=== PATIENT | female | born 1940 | race Caucasian/White ===

== ENCOUNTER 2018-11-24 17:05 | Inpatient (IN) ==
[2018-11-24] MEDS ORDERED: 0.9 % Sodium Chloride 1,000 ML IVC ONE (17:09)
--- NOTE | 2018-11-24 17:21 | Emergency Department Note ---
Disposition Clinical Impression: Pneumonia Qualifiers: Pneumonia type: due to unspecified organism Laterality: unspecified laterality Lung location: unspecified part of lung Qualified Code(s): J18.9 - Pneumonia, unspecified organism Disposition: Admitted As Inpatient Condition: Good Time of Disposition: 22:32 General Adult HPI - General Chief complaint: ED Altered Mental Status Stated complaint: confused Time Seen by Provider: 11/24/18 17:06 Source: patient, family Mode of arrival: EMS Nursing Notes Reviewed: Yes Vital Signs Reviewed: Yes - History of Present Illness HPI Narrative: Patient presenting to the ED via EMS with altered mental status. Patient is accompanied by her daughter and her family care physician. Patient history is mainly given by the daughter and her physician. He states that she has had several admissions in the last several months for urosepsis. She became altered yesterday and was progressively worse today. 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 No fever. Did have some hypoxia. No history of DVT or PE. Patient denies any abdominal pain. Is having some back pain. Pain Scale: 0 - Related Data Allergies Allergy/AdvReac Type Severity Reaction Status Date / Time No Known Allergies Allergy Verified 11/24/18 17:49 Review of Systems: As reviewed in the HPI. All other systems reviewed are negative or normal. Past Medical History - Past Medical History Attestation: Yes The following information was validated with the patient. Source: patient Medical history: Reports: hypertension - Social History Smoking Status: Never smoker Drug use: Reports: none Physical Exam CONSTITUTIONAL: [ill but non-toxic appearing, alert and in no acute distress] EYES: [EOMI, clear conjunctiva, PERRLA] HENT: [Normocephalic, atraumatic, moist mucus membranes] NECK: [normal inspection, full ROM, trachea midline, no obvious swelling] PULMONARY: [normal lung sounds bilaterally, normal chest rise and fall, no re spiratory distress or stridor, no wheezes, no rales, no rhonchi CARDIOVASCULAR: [tachycardic, regular rhythm, normal heart sounds, + 2/6 systolic murmur, distal extremities are warm and well perfused] GASTROINSTESTINAL: [soft, non-tender, non-rigid, non-distended, no guarding, no rebound, normal bowel sounds] GENITOURINARY/RECTAL: [deferred] NEUROLOGIC: [Alert, oriented to person and place but not time, normal speech, moves all extremities] EXTREMITIES: [Normal inspection, full ROM, no tenderness, no pedal edema, normal capillary refill] MUSCULOSKELETAL: [no gross deformities, atraumatic] SKIN: [No cyanosis, no diaphoresis, normal color, warm, no rash] PSYCHIATRIC: [unable to assess 2/2 ams] - General General appearance: alert Course Course Narrative: Patient presenting with altered mental status. Has a history of urosepsis and likely having a repeat episode now. We will get labs, EKG, chest x-ray, CT head, UA and reevaluate. Urinalysis is normal. However, patient is a very large right upper lobe pneumonia and significant leukocytosis. Started on vancomycin and Zosyn and will admit., Lactic was normal and she is not hypotensive, so she does not need an IV fluid bolus. Vital Signs Temperature 99.6 F 11/24/18 17:10 Pulse Rate 110 11/24/18 17:10 Respiratory Rate 18 11/24/18 17:10 Blood Pressure 156/98 11/24/18 17:10 O2 Sat by Pulse Oximetry 88 11/24/18 17:10 Temperature 98.4 F 11/24/18 21:24 Pulse Rate 92 11/24/18 21:24 Respiratory Rate 16 11/24/18 21:24 Blood Pressure 147/67 11/24/18 21:24 O2 Sat by Pulse Oximetry 92 11/24/18 21:24 Oxygen Delivery Oxygen Delivery Nasal Cannula Medical Decision Making - Lab Data Result diagrams: 11/24/18 18:05 11/24/18 18:05 Lab Results 11/24/18 11/24/18 11/24/18 Range/Units 17:29 17:29 18:05 WBC 37.5 H* (4.3-11.1) K/mcL RBC 4.37 (3.82-4.97) M/mcL Hgb 12.6 (11.5-15.4) g/dL Hct 39.2 (35.3-44.9) % MCV 89.7 (83.0-100.0) fL MCH 28.8 (28.0-33.3) pg MCHC 32.1 (31.6-35.5) g/dL RDW 16.1 H (11.5-14.5) % Plt Count 204 (140-400) K/mcL MPV 11.5 (9.4-12.4) fL Immature Gran % 6.8 H (0-4) % Seg Neutrophils % 85.9 % Lymphocytes % 2.0 % Monocytes % 5.1 % Eosinophils % 0.0 % Basophils % 0.2 % Neutrophils # 32.2 H (1.6-8.9) K/mcL Lymphocytes # 0.8 (0.6-4.6) K/mcL Monocytes # 1.9 H (0.0-1.3) K/mcL Eosinophils # 0.0 (0.0-0.6) K/mcL Basophils # 0.1 (0.0-0.2) K/mcL Sodium (136-145) mEq/L Potassium (3.5-5.1) mEq/L Chloride (98-107) mEq/L Carbon Dioxide (23-29) mEq/L BUN (8-23) mg/dL Creatinine (0.60-1.20) mg/dL Est GFR ( Amer) (> 60) Est GFR (Non-Af Amer) (> 60) BUN/Creatinine Ratio (6-26) Glucose (70-105) mg/dL Calculated Osmolality (280-300) Lactic Acid (0.5-2.2) mmol/L Calcium (8.6-10.3) mg/dL Total Bilirubin (0.3-1.0) mg/dL Direct Bilirubin (0.0-0.2) mg/dL Indirect Bilirubin (0.0-1.2) mg/dL AST (13-39) Units/L ALT (7-52) Units/L Alkaline Phosphatase (34-104) Units/L Troponin I (< 0.04) ng/mL Serum Total Protein (6.4-8.9) g/dL Albumin (3.5-5.7) g/dL Globulin (2.4-3.5) g/dL Albumin/Globulin Ratio (1.1-2.2) TSH (0.340-5.600) mcIU/mL Urine Color Yellow (Yellow) Urine Clarity Clear (Clear) Urine pH 6.5 (5.0-8.0) pH Units Ur Specific [place] 1.010 (1.010-1.025) Urine Protein 30 H (Neg-Trace) mg/dL Urine Glucose (UA) Normal (Normal) mg/dL Urine Ketones Negative (Negative) mg/dL Urine Blood Moderate H (Negative) Urine Nitrite Negative (Negative) Urine Bilirubin Negative (Negative) Urine Urobilinogen Normal (Normal) mg/dL Ur Leukocyte Esterase Negative (Negative) Urine Microscopic RBC 30-50 H (0-3) per hpf Urine Microscopic WBC 5-15 H (0-3) per hpf Ur Squamous Epith Cells Many H (None-Few) per lpf Urine Bacteria None Seen (None-Few) per hpf Hyaline Casts None Seen (None-Few) per lpf Ur Culture Indicated? YES A (NO) Urine Opiates Screen Negative (Qplcmd=766) ng/mL Ur Barbiturates Screen Negative (Bknenv=198) ng/mL Ur Phencyclidine Scrn Negative (Cutoff=25) ng/mL Ur Amphetamines Screen Negative (Ovbdrp=5453) ng/mL U Benzodiazepines Scrn Negative (Hpnrmt=550) ng/mL Urine Cocaine Screen Negative (Cutoff= 300) ng/mL U Marijuana (THC) Screen Positive H (Cutoff = 50) ng/mL Ur Drug Screen Interp See Below Ethyl Alcohol (Less than 10) mg/dL 11/24/18 11/24/18 Range/Units 18:05 18:05 WBC (4.3-11.1) K/mcL RBC (3.82-4.97) M/mcL Hgb (11.5-15.4) g/dL Hct (35.3-44.9) % MCV (83.0-100.0) fL MCH (28.0-33.3) pg MCHC (31.6-35.5) g/dL RDW (11.5-14.5) % Plt Count (140-400) K/mcL MPV (9.4-12.4) fL Immature Gran % (0-4) % Seg Neutrophils % % Lymphocytes % % Monocytes % % Eosinophils % % Basophils % % Neutrophils # (1.6-8.9) K/mcL Lymphocytes # (0.6-4.6) K/mcL Monocytes # (0.0-1.3) K/mcL Eosinophils # (0.0-0.6) K/mcL Basophils # (0.0-0.2) K/mcL Sodium 135 L (136-145) mEq/L Potassium 3.6 (3.5-5.1) mEq/L Chloride 100 (98-107) mEq/L Carbon Dioxide 26 (23-29) mEq/L BUN 24 H (8-23) mg/dL Creatinine 0.76 (0.60-1.20) mg/dL Est GFR ( Amer) > 60 (> 60) Est GFR (Non-Af Amer) > 60 (> 60) BUN/Creatinine Ratio 32 H (6-26) Glucose 116 H (70-105) mg/dL Calculated Osmolality 285 (280-300) Lactic Acid 2.1 (0.5-2.2) mmol/L Calcium 9.5 (8.6-10.3) mg/dL Total Bilirubin 0.6 (0.3-1.0) mg/dL Direct Bilirubin 0.1 (0.0-0.2) mg/dL Indirect Bilirubin 0.5 (0.0-1.2) mg/dL AST 15 (13-39) Units/L ALT 11 (7-52) Units/L Alkaline Phosphatase 52 (34-104) Units/L Troponin I 0.15 H* (< 0.04) ng/mL Serum Total Protein 8.0 (6.4-8.9) g/dL Albumin 3.2 L (3.5-5.7) g/dL Globulin 4.8 H (2.4-3.5) g/dL Albumin/Globulin Ratio 0.7 L (1.1-2.2) TSH 0.106 L (0.340-5.600) mcIU/mL Urine Color (Yellow) Urine Clarity (Clear) Urine pH (5.0-8.0) pH Units Ur Specific [place] (1.010-1.025) Urine Protein (Neg-Trace) mg/dL Urine Glucose (UA) (Normal) mg/dL Urine Ketones (Negative) mg/dL Urine Blood (Negative) Urine Nitrite (Negative) Urine Bilirubin (Negative) Urine Urobilinogen (Normal) mg/dL Ur Leukocyte Esterase (Negative) Urine Microscopic RBC (0-3) per hpf Urine Microscopic WBC (0-3) per hpf Ur Squamous Epith Cells (None-Few) per lpf Urine Bacteria (None-Few) per hpf Hyaline Casts (None-Few) per lpf Ur Culture Indicated? (NO) Urine Opiates Screen (Exkmza=425) ng/mL Ur Barbiturates Screen (Jryzek=836) ng/mL Ur Phencyclidine Scrn (Cutoff=25) ng/mL Ur Amphetamines Screen (Fzilaq=5990) ng/mL U Benzodiazepines Scrn (Bbeqmv=458) ng/mL Urine Cocaine Screen (Cutoff= 300) ng/mL U Marijuana (THC) Screen (Cutoff = 50) ng/mL Ur Drug Screen Interp Ethyl Alcohol < 10 (Less than 10) mg/dL
[2018-11-24 17:38] LABS: Bilirubin,Urine Negative (Negative); Blood,Urine Moderate (Negative); Clarity,Urine Clear (Clear); Color,Urine Yellow (Yellow); Glucose,Urine (UA) Normal (Normal); Ketones,Urine Negative (Negative); Leukocyte Esterase,Urine Negative (Negative); Nitrite,Urine Negative (Negative); PH,Urine 6.5 pH Units (5.0-8.0); Protein,Urine 30 mg/dL (Neg-Trace); Urobilinogen,Urine Normal (Normal)
[2018-11-24 17:40] LABS: Bacteria,Urine None Seen per hpf (None-Few); Hyaline Casts,Urine None Seen per lpf (None-Few); RBC,Urine 30-50 per hpf (0-3); Squamous Epithelial Cell,Urine Many per lpf (None-Few)
[2018-11-24 18:30] LABS: Basophils % 0.2 %; Monocytes % 5.1 %; Red Blood Count 4.37 M/mcL (3.82-4.97)
[2018-11-24 18:32] LABS: Basophils # 0.1 K/mcL (0.0-0.2); Hematocrit 39.2 % (35.3-44.9); Hemoglobin 12.6 g/dL (11.5-15.4); Immature Granulocytes % 6.8 % (0-4); Lymphocytes # 0.8 K/mcL (0.6-4.6); Mean Corpuscular HGB Conc 32.1 g/dL (31.6-35.5); Mean Corpuscular Hemoglobin 28.8 pg (28.0-33.3); Mean Corpuscular Volume 89.7 fL (83.0-100.0); Mean Platelet Volume 11.5 fL (9.4-12.4); Monocytes # 1.9 K/mcL (0.0-1.3); Neutrophils # 32.2 K/mcL (1.6-8.9); Platelet Count 204 K/mcL (140-400); Red Cell Distribution Width 16.1 % (11.5-14.5); Segmented Neutrophils % 85.9 %
[2018-11-24 18:35] LABS: White Blood Count 37.5 K/mcL (4.3-11.1)
[2018-11-24 18:37] LABS: Amphetamine Screen,Urine Negative ng/mL (Cutoff=1000); Barbiturate Screen,Urine Negative ng/mL (Cutoff=200); Benzodiazepines Screen,Urine Negative ng/mL (Cutoff=200); Cannabinoid Screen,Urine Positive ng/mL (Cutoff = 50); Cocaine Screen,Urine Negative ng/mL (Cutoff= 300); Phencyclidine Screen,Urine Negative ng/mL (Cutoff=25)
[2018-11-24 18:56] LABS: Alanine Aminotransferase 11 Units/L (7-52); Albumin 3.2 g/dL (3.5-5.7); Albumin/Globulin Ratio 0.7 (1.1-2.2); Alkaline Phosphatase 52 Units/L (34-104); Aspartate Amino Transferase 15 Units/L (13-39); BUN/Creatinine Ratio 32 (6-26); Bilirubin,Direct 0.1 mg/dL (0.0-0.2); Bilirubin,Indirect 0.5 mg/dL (0.0-1.2); Bilirubin,Total 0.6 mg/dL (0.3-1.0); Blood Urea Nitrogen 24 mg/dL (8-23); Calcium 9.5 mg/dL (8.6-10.3); Carbon Dioxide 26 mEq/L (23-29); Chloride 100 mEq/L (98-107); Ethanol < 10 mg/dL (Less than 10); Globulin 4.8 g/dL (2.4-3.5); Glucose 116 mg/dL (70-105); Osmolality,Calculated 285 (280-300); Potassium 3.6 mEq/L (3.5-5.1); Sodium 135 mEq/L (136-145); Troponin I 0.15 ng/mL (< 0.04); eGFR For African Americans > 60 (> 60); eGFR For Non-African Americans > 60 (> 60)
[2018-11-24] MEDS ORDERED: Piperacillin/Tazobactam 3.375 GM in Water for inj. (sterile) 20 ML IVP ONE (18:57)
[2018-11-24] MEDS ORDERED: Vancomycin (wt based) 1,000 MG VIAL IV STA (18:57)
[2018-11-24] MEDS ORDERED: Isovue-370 500 ML BOTTLE IVP ONE (19:04)
[2018-11-24 19:06] LABS: Thyroid Stimulating Hormone 0.106 mcIU/mL (0.340-5.600)
[2018-11-24 19:20] LABS: Opiate Screen,Urine Negative ng/mL (Cutoff=300)
--- NOTE | 2018-11-24 19:27 | Emergency Department Note ---
Disposition Clinical Impression: Pneumonia Qualifiers: Pneumonia type: due to unspecified organism Laterality: unspecified laterality Lung location: unspecified part of lung Qualified Code(s): J18.9 - Pneumonia, unspecified organism Disposition: Admitted As Inpatient Condition: Good Forms: ED Satisfaction Letter Time of Disposition: 19:27 General Adult HPI - General Chief complaint: ED Altered Mental Status Stated complaint: confused Time Seen by Provider: 11/24/18 17:06 Source: patient, family Mode of arrival: EMS - History of Present Illness Pain Scale: 0 - Related Data Allergies Allergy/AdvReac Type Severity Reaction Status Date / Time No Known Allergies Allergy Verified 11/24/18 17:49 Past Medical History - Past Medical History Medical history: Reports: hypertension - Social History Smoking Status: Never smoker Drug use: Reports: none Physical Exam - General General appearance: alert Course Vital Signs Temperature 99.6 F 11/24/18 17:10 Pulse Rate 110 11/24/18 17:10 Respiratory Rate 18 11/24/18 17:10 Blood Pressure 156/98 11/24/18 17:10 O2 Sat by Pulse Oximetry 88 11/24/18 17:10 Temperature 99.6 F 11/24/18 17:10 Pulse Rate 99 11/24/18 17:12 Respiratory Rate 18 11/24/18 17:12 Blood Pressure 136/69 11/24/18 17:12 O2 Sat by Pulse Oximetry 95 11/24/18 17:12 Oxygen Delivery Oxygen Delivery Nasal Cannula Medical Decision Making - Lab Data Result diagrams: 11/24/18 18:05 11/24/18 18:05 Lab Results 11/24/18 11/24/18 11/24/18 Range/Units 17:29 17:29 18:05 WBC 37.5 H* (4.3-11.1) K/mcL RBC 4.37 (3.82-4.97) M/mcL Hgb 12.6 (11.5-15.4) g/dL Hct 39.2 (35.3-44.9) % MCV 89.7 (83.0-100.0) fL MCH 28.8 (28.0-33.3) pg MCHC 32.1 (31.6-35.5) g/dL RDW 16.1 H (11.5-14.5) % Plt Count 204 (140-400) K/mcL MPV 11.5 (9.4-12.4) fL Immature Gran % 6.8 H (0-4) % Seg Neutrophils % 85.9 % Lymphocytes % 2.0 % Monocytes % 5.1 % Eosinophils % 0.0 % Basophils % 0.2 % Neutrophils # 32.2 H (1.6-8.9) K/mcL Lymphocytes # 0.8 (0.6-4.6) K/mcL Monocytes # 1.9 H (0.0-1.3) K/mcL Eosinophils # 0.0 (0.0-0.6) K/mcL Basophils # 0.1 (0.0-0.2) K/mcL Sodium (136-145) mEq/L Potassium (3.5-5.1) mEq/L Chloride (98-107) mEq/L Carbon Dioxide (23-29) mEq/L BUN (8-23) mg/dL Creatinine (0.60-1.20) mg/dL Est GFR ( Amer) (> 60) Est GFR (Non-Af Amer) (> 60) BUN/Creatinine Ratio (6-26) Glucose (70-105) mg/dL Calculated Osmolality (280-300) Lactic Acid (0.5-2.2) mmol/L Calcium (8.6-10.3) mg/dL Total Bilirubin (0.3-1.0) mg/dL Direct Bilirubin (0.0-0.2) mg/dL Indirect Bilirubin (0.0-1.2) mg/dL AST (13-39) Units/L ALT (7-52) Units/L Alkaline Phosphatase (34-104) Units/L Troponin I (< 0.04) ng/mL Serum Total Protein (6.4-8.9) g/dL Albumin (3.5-5.7) g/dL Globulin (2.4-3.5) g/dL Albumin/Globulin Ratio (1.1-2.2) TSH (0.340-5.600) mcIU/mL Urine Color Yellow (Yellow) Urine Clarity Clear (Clear) Urine pH 6.5 (5.0-8.0) pH Units Ur Specific [place] 1.010 (1.010-1.025) Urine Protein 30 H (Neg-Trace) mg/dL Urine Glucose (UA) Normal (Normal) mg/dL Urine Ketones Negative (Negative) mg/dL Urine Blood Moderate H (Negative) Urine Nitrite Negative (Negative) Urine Bilirubin Negative (Negative) Urine Urobilinogen Normal (Normal) mg/dL Ur Leukocyte Esterase Negative (Negative) Urine Microscopic RBC 30-50 H (0-3) per hpf Urine Microscopic WBC 5-15 H (0-3) per hpf Ur Squamous Epith Cells Many H (None-Few) per lpf Urine Bacteria None Seen (None-Few) per hpf Hyaline Casts None Seen (None-Few) per lpf Ur Culture Indicated? YES A (NO) Urine Opiates Screen Negative (Sdjfuz=196) ng/mL Ur Barbiturates Screen Negative (Irspbp=832) ng/mL Ur Phencyclidine Scrn Negative (Cutoff=25) ng/mL Ur Amphetamines Screen Negative (Vqsqaz=8630) ng/mL U Benzodiazepines Scrn Negative (Jnycwa=083) ng/mL Urine Cocaine Screen Negative (Cutoff= 300) ng/mL U Marijuana (THC) Screen Positive H (Cutoff = 50) ng/mL Ur Drug Screen Interp See Below Ethyl Alcohol (Less than 10) mg/dL 11/24/18 11/24/18 Range/Units 18:05 18:05 WBC (4.3-11.1) K/mcL RBC (3.82-4.97) M/mcL Hgb (11.5-15.4) g/dL Hct (35.3-44.9) % MCV (83.0-100.0) fL MCH (28.0-33.3) pg MCHC (31.6-35.5) g/dL RDW (11.5-14.5) % Plt Count (140-400) K/mcL MPV (9.4-12.4) fL Immature Gran % (0-4) % Seg Neutrophils % % Lymphocytes % % Monocytes % % Eosinophils % % Basophils % % Neutrophils # (1.6-8.9) K/mcL Lymphocytes # (0.6-4.6) K/mcL Monocytes # (0.0-1.3) K/mcL Eosinophils # (0.0-0.6) K/mcL Basophils # (0.0-0.2) K/mcL Sodium 135 L (136-145) mEq/L Potassium 3.6 (3.5-5.1) mEq/L Chloride 100 (98-107) mEq/L Carbon Dioxide 26 (23-29) mEq/L BUN 24 H (8-23) mg/dL Creatinine 0.76 (0.60-1.20) mg/dL Est GFR ( Amer) > 60 (> 60) Est GFR (Non-Af Amer) > 60 (> 60) BUN/Creatinine Ratio 32 H (6-26) Glucose 116 H (70-105) mg/dL Calculated Osmolality 285 (280-300) Lactic Acid 2.1 (0.5-2.2) mmol/L Calcium 9.5 (8.6-10.3) mg/dL Total Bilirubin 0.6 (0.3-1.0) mg/dL Direct Bilirubin 0.1 (0.0-0.2) mg/dL Indirect Bilirubin 0.5 (0.0-1.2) mg/dL AST 15 (13-39) Units/L ALT 11 (7-52) Units/L Alkaline Phosphatase 52 (34-104) Units/L Troponin I 0.15 H* (< 0.04) ng/mL Serum Total Protein 8.0 (6.4-8.9) g/dL Albumin 3.2 L (3.5-5.7) g/dL Globulin 4.8 H (2.4-3.5) g/dL Albumin/Globulin Ratio 0.7 L (1.1-2.2) TSH 0.106 L (0.340-5.600) mcIU/mL Urine Color (Yellow) Urine Clarity (Clear) Urine pH (5.0-8.0) pH Units Ur Specific [place] (1.010-1.025) Urine Protein (Neg-Trace) mg/dL Urine Glucose (UA) (Normal) mg/dL Urine Ketones (Negative) mg/dL Urine Blood (Negative) Urine Nitrite (Negative) Urine Bilirubin (Negative) Urine Urobilinogen (Normal) mg/dL Ur Leukocyte Esterase (Negative) Urine Microscopic RBC (0-3) per hpf Urine Microscopic WBC (0-3) per hpf Ur Squamous Epith Cells (None-Few) per lpf Urine Bacteria (None-Few) per hpf Hyaline Casts (None-Few) per lpf Ur Culture Indicated? (NO) Urine Opiates Screen (Hhkrfx=676) ng/mL Ur Barbiturates Screen (Mmehkt=154) ng/mL Ur Phencyclidine Scrn (Cutoff=25) ng/mL Ur Amphetamines Screen (Lmodzm=7676) ng/mL U Benzodiazepines Scrn (Gqeuhn=263) ng/mL Urine Cocaine Screen (Cutoff= 300) ng/mL U Marijuana (THC) Screen (Cutoff = 50) ng/mL Ur Drug Screen Interp Ethyl Alcohol < 10 (Less than 10) mg/dL Attestation Statement - Attestation Attestation: I examined this patient and my medical decision-making was reviewed with the Resident Physician. I agree with the documented findings, disposition and treatment plan as described except to the extent set forth below. 78 year old jose antonio presents to the eD with complaints of altered mental status and confusion. It appears that she has pneumonia on CXR and an elevated WBC. Will admit to medicine with IV ABX.
[2018-11-24] MEDS ORDERED: Naloxone 0.4 MG/ML INJ IVP PRN (20:35)
[2018-11-24] MEDS ORDERED: Vancomycin (wt based) 1,000 MG VIAL IVPB SCH (21:00)
--- NOTE | 2018-11-24 21:08 | Internal Med History&Physical ---
<Archana Minor E - Last Filed: 11/25/18 05:42> Date of Encounter: 11/25/18 Internal Medicine - H&P: HPI History of present illness: Ms. Win is a 78 year old female Internal Medicine - H&P: Meds Cyanocobalamin (Vitamin B-12) [Vitamin B12] 11/25/18 [History] Fluconazole [Diflucan] 200 mg PO DAILY 11/25/18 [History] Lactobacillus Combination No.8 [Adult Probiotic] 11/25/18 [History] Levothyroxine [Synthroid] [place] [address]/25/18 [History] Linaclotide [Linzess] 72 mcg PO 11/25/18 [History] Lisinopril [Zestril] 10 mg PO DAILY 11/25/18 [History] Lubiprostone [Amitiza] 24 mcg PO 11/25/18 [History] Magnesium Hydroxide [Milk of Magnesia] 400 mg PO 11/25/18 [History] Methadone Oral Concentrate [Methadone] 5 mg PO TID 11/25/18 [History] Mirabegron [Myrbetriq] 50 mg PO 11/25/18 [History] Multivitamin [Daily Multiple Vitamin] 1 each PO 11/25/18 [History] Naloxegol Oxalate [Movantik] 25 mg PO 11/25/18 [History] Pantoprazole Sodium [Protonix] 40 mg PO 11/25/18 [History] Sennosides [Senokot] 8.6 mg PO 11/25/18 [History] Zolpidem [Ambien] 10 mg PO HS 11/25/18 [History] Allergy/AdvReac Type Severity Reaction Status Date / Time acetaminophen [From [place]] Allergy Hives Verified 11/25/18 03:08 clarithromycin [From Biaxin] Allergy See Verified 11/25/18 03:08 Comments codeine Allergy Hives Verified 11/25/18 03:08 hydrocodone [From [place]] Allergy Hives Verified 11/25/18 03:08 morphine Allergy Hallucinati Verified 11/25/18 03:08 ng sulfamethoxazole AdvReac Itching Verified 11/25/18 02:59 [From Septra] trimethoprim [From Septra] AdvReac Itching Verified 11/25/18 02:59 All Systems PM: A 10-system review of systems was performed and is negative for pertinent findings except as documented above in the HPI. - Constitutional Vitals: Temp Pulse Resp BP Pulse Ox 98.6 F 101 16 172/93 91 11/25/18 05:27 11/25/18 05:27 11/25/18 05:27 11/25/18 05:27 11/25/18 05:27 Internal Med - H&P Results - Labs CBC & Chem 7: 11/25/18 00:32 11/25/18 00:32 Labs: Short CBC 11/24/18 11/25/18 Range/Units 18:05 00:32 WBC 37.5 H* 34.6 H* (4.3-11.1) K/mcL Hgb 12.6 12.1 (11.5-15.4) g/dL Hct 39.2 37.5 (35.3-44.9) % Plt Count 204 188 (140-400) K/mcL Neutrophils # 32.2 H 29.0 H (1.6-8.9) K/mcL BMP 11/24/18 11/25/18 18:05 00:32 Sodium 135 L 135 L Potassium 3.6 3.7 Chloride 100 101 Carbon Dioxide 26 24 BUN 24 H 24 H Creatinine 0.76 0.82 Glucose 116 H 121 H Calcium 9.5 8.9 Cardiac Enzymes 11/24/18 11/25/18 Range/Units 18:05 00:32 Troponin I 0.15 H* 0.12 H* (< 0.04) ng/mL Liver Function 11/24/18 11/25/18 Range/Units 18:05 00:32 Total Bilirubin 0.6 0.7 (0.3-1.0) mg/dL Direct Bilirubin 0.1 (0.0-0.2) mg/dL AST 15 17 (13-39) Units/L ALT 11 12 (7-52) Units/L Alkaline Phosphatase 52 46 (34-104) Units/L Albumin 3.2 L 2.9 L (3.5-5.7) g/dL Urine 11/24/18 Range/Units 17:29 Urine Color Yellow (Yellow) Urine Clarity Clear (Clear) Urine pH 6.5 (5.0-8.0) pH Units Ur Specific [place] 1.010 (1.010-1.025) Urine Protein 30 H (Neg-Trace) mg/dL Urine Glucose (UA) Normal (Normal) mg/dL - Impressions ITS Impressions Chest X-Ray 11/24/18 17:09 IMPRESSION: Airspace consolidation right upper lobe possibly representing pneumonia. Follow-up is recommended to ensure resolution. D/ / Luis Manuel Dwyer MD / Luis Manuel Dwyer MD Interpreting Provider: Luis Manuel Dwyer MD Head CT 11/24/18 17:10 IMPRESSION: No acute intracranial abnormality. D/ / Luis Manuel Dwyer MD / Luis Manuel Dwyer MD Interpreting Provider: Luis Manuel Dwyer MD - Time Spent With Patient Total time spent is greater than 50% in coordination of care (as documented) at patient's floor/unit and/or counseling patient: <Saniya Edmondson - Last Filed: 11/25/18 18:54> Date of Encounter: 11/24/18 Time of Encounter: 20:44 Internal Medicine - H&P: HPI Chief complaint: AMS History of present illness: Ms. Win is a 78 year old female with a past medical history of hypertension, sarcoidosis and history of chronic low back pain with multiple surgeries resulting in opioid addiction and currently on a methadone taper and medical marijuana who presented to the ED with family due to concern for altered mental status. Per daughter at bedside patient was in her usual state of health up until yesterday. She reports that she went to bed last night and apparently in the middle of night had gotten up to use the bathroom; her bed has 3 steps and patient had apparently fallen asleep with her leg still resting on the second step. Patient apparently has had several admissions in the last few months for various infections including urosepsis. Patient currently lives in [place] and flu in the visit family a week ago. No history of DVT or PE. Patient denies any lower extremity edema. Patient does endorse some nonproductive cough which began last night. She reports that daughter recently recovered from what she reports as flulike symptoms. No reports of fever or chills, nausea, shortness of breath, chest pain, abdominal pain, vomiting or diarrhea. Patient is a nonsmoker; no significant alcohol use. She is normally very active and independent of all ADLs. Only history of breast cancer. On my assessment, patient appeared diaphoretic and was somewhat lethargic but alert and oriented 3. She was able to provide a history but would occasionally fall back to sleep. On arrival patient was afebrile, hemodynamically stable. She was noted to be mildly tachycardic with a heart rate of 110. Initial pulse ox showed 88% on room air. Patient reportedly was 85% on room air at home prior to arrival. Laboratory workup notable for a significant leukocytosis of 37.5 and a elevated troponin of 0.15. Review of EKG shows sinus tachycardia with nonspecific T-wave and ST changes. Chest x-ray was obtained which showed findings concerning for a right upper lobe pneumonia. CT scan of the head was negative. Her urine drug screen was positive for marijuana. Patient was given 1 L fluid bolus in the ED and started on broad-spectrum antibiotic coverage for possible healthcare associated pneumonia. Past Med Surg Social Fam HX - Past Medical History Medical history: hypertension Additional medical history: sarcoidosis - Social History Smoking Status: Never smoker Drug use: none All Systems PM: A 10-system review of systems was performed and is negative for pertinent findings except as documented above in the HPI. - Constitutional Vitals: Temp Pulse Resp BP Pulse Ox 99.6 F 99 18 136/69 95 11/24/18 17:10 11/24/18 17:12 11/24/18 17:12 11/24/18 17:12 11/24/18 17:12 Exam: General: Alert and oriented 3 lying in bed in no acute distress patient does appear diaphoretic Skin:Normal color, no rash, no lesions. HEENT:EOM, pupils equal, round and reactive. Cardiovascular:Normal S1 & S2, no rubs, murmurs or gallops. No JVD. Pulse regular. Lungs: Rales and is willing wheeze in the right upper posterior thorax Abdomen:Soft, non-tender, no rigidity. Extremities:No deformity, no edema or tenderness, no joint swelling or clubbing. Neurological:Normal cognition though somewhat somnolent. No focal deficits appreciated Pulses:Carotid and radial pulses normal +2. Rest of the physical exam is non contributory Internal Med - H&P Results - Labs CBC & Chem 7: 11/25/18 16:04 11/25/18 00:32 Labs: Short CBC 11/24/18 Range/Units 18:05 WBC 37.5 H* (4.3-11.1) K/mcL Hgb 12.6 (11.5-15.4) g/dL Hct 39.2 (35.3-44.9) % Plt Count 204 (140-400) K/mcL Neutrophils # 32.2 H (1.6-8.9) K/mcL BMP 11/24/18 18:05 Sodium 135 L Potassium 3.6 Chloride 100 Carbon Dioxide 26 BUN 24 H Creatinine 0.76 Glucose 116 H Calcium 9.5 Cardiac Enzymes 11/24/18 Range/Units 18:05 Troponin I 0.15 H* (< 0.04) ng/mL Liver Function 11/24/18 Range/Units 18:05 Total Bilirubin 0.6 (0.3-1.0) mg/dL Direct Bilirubin 0.1 (0.0-0.2) mg/dL AST 15 (13-39) Units/L ALT 11 (7-52) Units/L Alkaline Phosphatase 52 (34-104) Units/L Albumin 3.2 L (3.5-5.7) g/dL Urine 11/24/18 Range/Units 17:29 Urine Color Yellow (Yellow) Urine Clarity Clear (Clear) Urine pH 6.5 (5.0-8.0) pH Units Ur Specific [place] 1.010 (1.010-1.025) Urine Protein 30 H (Neg-Trace) mg/dL Urine Glucose (UA) Normal (Normal) mg/dL - Impressions ITS Impressions Chest X-Ray 11/24/18 17:09 IMPRESSION: Airspace consolidation right upper lobe possibly representing pneumonia. Follow-up is recommended to ensure resolution. D/ / Luis Manuel Dwyer MD / Luis Manuel Dwyer MD Interpreting Provider: Luis Manuel Dwyer MD Head CT 11/24/18 17:10 IMPRESSION: No acute intracranial abnormality. D/ / Luis Manuel Dwyer MD / Luis Manuel Dwyer MD Interpreting Provider: Luis Manuel Dwyer MD - Assessment and Plan (1) Acute encephalopathy Current Visit: Yes Status: Acute Assessment and plan: Patient presented with acute encephalopathy characterized by mild confusion and increased lethargy. Suspect secondary to sepsis with right upper lobe pneumonia with acute hypoxia. CT scan of the head was otherwise unremarkable. No focal deficits. Patient alert oriented 3 though remains diaphoretic and somewhat somnolent. We will continue treatment for pneumonia and monitor. (2) Sepsis Current Visit: Yes Status: Acute Assessment and plan: Patient presents with 2 of 4 SIRS criteria with tachycardia and a significant leukocytosis with left shift with evidence of a right upper lobe pneumonia on chest x-ray. Currently hemodynamically stable. Heart rate has come down after 1 L fluid bolus. -Jay broad-spectrum antibiotics coverage -Continue fluids -Follow up blood cultures and urine antigens Qualifiers: Sepsis type: sepsis due to unspecified organism Qualified Code(s): A41.9 - Sepsis, unspecified organism (3) Hx of opioid abuse Current Visit: Yes Status: Acute Assessment and plan: Currently on methadone and marijuana tincture. Continue current regimen. (4) Pneumonia Current Visit: Yes Status: Acute Assessment and plan: Healthcare associated pneumonia setting of recent hospitalizations for infectious etiologies. We will continue patient on vancomycin, Zosyn and azithromycin. Blood cultures and urine antigens ordered. We will obtain sputum culture if possible. Qualifiers: Pneumonia type: due to unspecified organism Laterality: unspecified laterality Lung location: unspecified part of lung Qualified Code(s): J18.9 - Pneumonia, unspecified organism (5) DVT prophylaxis Current Visit: Yes Status: Acute Assessment and plan: Subcutaneous heparin (6) Hypoxia Current Visit: Yes Status: Acute Assessment and plan: Patient reported to have a O2 saturation of 85% on room air at home prior to arrival. Upon assessment here in the ED, her O2 saturation was found to be 88. Currently saturating in the mid 90s on 2 L. Suspect likely secondary to pneumonia. -Continue O2 support and monitor -Continue treatment of underlying pneumonia - Time Spent With Patient Total time spent is greater than 50% in coordination of care (as documented) at patient's floor/unit and/or counseling patient:
[2018-11-24] MEDS: Azithromycin 500 MG in D5% in Water 250 ML IVPB SCH (21:52)
[2018-11-24] MEDS: *HR* Heparin 5,000 UNIT/ML VIAL SQ SCH (21:53)
[2018-11-24] MEDS: 0.9 % Sodium Chloride 1,000 ML IVC SCH (21:56)
[2018-11-25 00:47] LABS: Basophils % 0.3 %
[2018-11-25 00:49] LABS: Basophils # 0.1 K/mcL (0.0-0.2); Hematocrit 37.5 % (35.3-44.9); Hemoglobin 12.1 g/dL (11.5-15.4); Immature Granulocytes % 9.7 % (0-4); Lymphocytes # 1.2 K/mcL (0.6-4.6); Lymphocytes % 3.4 %; Mean Corpuscular HGB Conc 32.3 g/dL (31.6-35.5); Mean Corpuscular Hemoglobin 29.1 pg (28.0-33.3); Mean Corpuscular Volume 90.1 fL (83.0-100.0); Mean Platelet Volume 12.1 fL (9.4-12.4); Monocytes % 2.8 %; Platelet Count 188 K/mcL (140-400); Red Blood Count 4.16 M/mcL (3.82-4.97); Red Cell Distribution Width 16.2 % (11.5-14.5); Segmented Neutrophils % 83.8 %
[2018-11-25 00:51] LABS: White Blood Count 34.6 K/mcL (4.3-11.1)
[2018-11-25 01:07] LABS: Alanine Aminotransferase 12 Units/L (7-52); Albumin 2.9 g/dL (3.5-5.7); Albumin/Globulin Ratio 0.7 (1.1-2.2); Alkaline Phosphatase 46 Units/L (34-104); Aspartate Amino Transferase 17 Units/L (13-39); BUN/Creatinine Ratio 29 (6-26); Bilirubin,Total 0.7 mg/dL (0.3-1.0); Blood Urea Nitrogen 24 mg/dL (8-23); Calcium 8.9 mg/dL (8.6-10.3); Carbon Dioxide 24 mEq/L (23-29); Chloride 101 mEq/L (98-107); Globulin 4.3 g/dL (2.4-3.5); Glucose 121 mg/dL (70-105); Osmolality,Calculated 285 (280-300); Potassium 3.7 mEq/L (3.5-5.1); Sodium 135 mEq/L (136-145); Total Protein 7.2 g/dL (6.4-8.9); eGFR For African Americans > 60 (> 60); eGFR For Non-African Americans > 60 (> 60)
[2018-11-25] MEDS: Acetaminophen 325 MG TABLET PO PRN ×2 (01:10→07:52)
[2018-11-25 01:12] LABS: Platelet Estimate Normal (Normal)
[2018-11-25 02:05] LABS: Troponin I 0.12 ng/mL (< 0.04)
[2018-11-25] MEDS: Piperacillin/Tazobactam 3.375 GM in 0.9 % Sodium Chloride Mini Bag 100 ML IVPB SCH ×3 (02:34→18:41)
[2018-11-25] MEDS: *HR* Heparin 5,000 UNIT/ML VIAL SQ SCH ×2 (02:41→14:14)
[2018-11-25] MEDS ORDERED: SUMAtriptan succinate 25 MG TABLET PO ONE (02:41)
[2018-11-25 02:45] LABS: Influenza A PCR Negative (Negative); Influenza B PCR Negative (Negative)
[2018-11-25] MEDS ORDERED: SUMAtriptan succinate 50 MG TABLET PO ONE (05:37)
--- NOTE | 2018-11-25 07:57 | Internal Med Progress Note ---
Hospitalist Progress Note - Encounter Date of Encounter: 11/25/18 Time of Encounter: 11:00 - Subjective Interval History: Patient is a 78-year-old female who is from [place] visiting family who presents due to confusion found to have acute hypoxic respiratory failure secondary to sepsis with pneumonia. - Exam Vitals: Temp Pulse Resp BP Pulse Ox 98.4 F 108 16 179/91 87 11/25/18 07:36 11/25/18 07:36 11/25/18 05:27 11/25/18 07:36 11/25/18 07:36 Exam: Gen.: Nonacute distress, alert and oriented 3 ENT: Mucosal membranes moist Respiratory: Lungs are clear to auscultation bilaterally without any wheezing rhonchi or rales Cardiovascular: Normal S1 and S2 regular rate rhythm no murmurs rubs or gallops Abdomen: Soft, nontender and nondistended with positive bowel sounds Extremities: No lower extremity edema Skin: Normal color - Assessment and Plan (1) Pneumonia Current Visit: Yes Status: Acute Assessment and Plan: Patient with worsening leukocytosis morning and chest x-ray with concerns for right upper lobe pneumonia Also requiring increased amounts of O2 supplementation at 4 L of nasal cannula. Will continue IV antibiotics started on admission (2) Acute respiratory failure with hypoxia Current Visit: Yes Status: Acute Assessment and Plan: Patient requiring O2 supplementation this morning at 4 L/m Suspect acute hypoxic respiratory failure secondary to the above Will monitor on pulse oximetry and wean as tolerates (3) Acute encephalopathy Current Visit: Yes Status: Acute Assessment and Plan: Patient presented with acute encephalopathy characterized by mild confusion and increased lethargy. No acute findings on head CT. Suspect secondary to sepsis with right upper lobe pneumonia with acute hypoxia. Will continue to monitor (4) Sepsis Current Visit: Yes Status: Acute Assessment and Plan: Patient presents with 2 of 4 SIRS criteria with tachycardia and a significant leukocytosis with left shift with evidence of a right upper lobe pneumonia on chest x-ray. Will continue IV fluids and IV antibiotics as above (5) Elevated troponin Current Visit: Yes Status: Acute Assessment and Plan: Patient found to have elevated troponins: 0.15->0.12->0.30 Suspect secondary to demand ischemia due to the above However cardio consulted with recommendations to start patient on heparin drip and will make nothing by mouth in case of left heart catheterization for tomorrow (6) Hypothyroid Current Visit: Yes Status: Acute Assessment and Plan: Patient with a TSH of 0.106 on admission; free T3/T4 pending Continue home dose of levothyroxine (7) HTN (hypertension) Current Visit: Yes Status: Acute Assessment and Plan: Due to patient sepsis Will hold antihypertensive medication Will continue to monitor (8) Hx of opioid abuse Current Visit: Yes Status: Acute Assessment and Plan: Currently on methadone and marijuana tincture. Continue current regimen. (9) GERD (gastroesophageal reflux disease) Current Visit: Yes Status: Acute Assessment and Plan: Continue home dose of PPI DVT Prophylaxis: Heparin subcutaneous - Time Spent with Patient Total time spent is greater than 50% in coordination of care (as documented) at patient's floor/unit and/or counseling patient: Internal Medicine: Result - Labs CBC & Chem 7: 11/25/18 16:04 11/25/18 00:32 Labs: Short CBC 11/24/18 11/25/18 Range/Units 18:05 00:32 WBC 37.5 H* 34.6 H* (4.3-11.1) K/mcL Hgb 12.6 12.1 (11.5-15.4) g/dL Hct 39.2 37.5 (35.3-44.9) % Plt Count 204 188 (140-400) K/mcL Neutrophils # 32.2 H 29.0 H (1.6-8.9) K/mcL BMP 11/24/18 11/25/18 18:05 00:32 Sodium 135 L 135 L Potassium 3.6 3.7 Chloride 100 101 Carbon Dioxide 26 24 BUN 24 H 24 H Creatinine 0.76 0.82 Glucose 116 H 121 H Calcium 9.5 8.9 Cardiac Enzymes 11/24/18 11/25/18 11/25/18 Range/Units 18:05 00:32 06:14 Troponin I 0.15 H* 0.12 H* 0.30 H* (< 0.04) ng/mL Liver Function 11/24/18 11/25/18 Range/Units 18:05 00:32 Total Bilirubin 0.6 0.7 (0.3-1.0) mg/dL Direct Bilirubin 0.1 (0.0-0.2) mg/dL AST 15 17 (13-39) Units/L ALT 11 12 (7-52) Units/L Alkaline Phosphatase 52 46 (34-104) Units/L Albumin 3.2 L 2.9 L (3.5-5.7) g/dL Urine 11/24/18 Range/Units 17:29 Urine Color Yellow (Yellow) Urine Clarity Clear (Clear) Urine pH 6.5 (5.0-8.0) pH Units Ur Specific [place] 1.010 (1.010-1.025) Urine Protein 30 H (Neg-Trace) mg/dL Urine Glucose (UA) Normal (Normal) mg/dL - Impressions Impressions Chest X-Ray 11/24/18 17:09 IMPRESSION: Airspace consolidation right upper lobe possibly representing pneumonia. Follow-up is recommended to ensure resolution. D/ / LuisM anuel Dwyer MD / Luis Manuel Dwyer MD Interpreting Provider: Luis Manuel Dwyer MD Head CT 11/24/18 17:10 IMPRESSION: No acute intracranial abnormality. D/ / Luis Manuel Dwyer MD / Luis Manuel Dwyer MD Interpreting Provider: Luis Manuel Dwyer MD Consult Discharge Plan - Plan Referrals: NONE,PCP [Primary Care Provider] - (1) Pneumonia Qualifiers: Pneumonia type: due to unspecified organism Laterality: unspecified laterality Lung location: unspecified part of lung Qualified Code(s): J18.9 - Pneumonia, unspecified organism
[2018-11-25] MEDS ORDERED: Ketorolac 30 MG/ML VIAL IVP ONE (08:24)
[2018-11-25 09:12] LABS: Triiodothyronine (T3) Free 1.66 pg/mL (2.50-3.90)
[2018-11-25] MEDS: 0.9 % Sodium Chloride 1,000 ML IVC SCH (11:09)
[2018-11-25 12:55] LABS: Adenovirus Not Detected (Not Detect); Bordetella Pertussis Not Detected (Not Detect); Chlamydophila pneumoniae Not Detected (Not Detect); Coronavirus 229E Not Detected (Not Detect); Coronavirus HKU1 Not Detected (Not Detect); Coronavirus NL63 Not Detected (Not Detect); Coronavirus OC43 Not Detected (Not Detect); Human Metapneumovirus Not Detected (Not Detect); Human Rhinovirus/Enterovirus Not Detected (Not Detect); Influenza A Subtype 2009 H1 Not Detected (Not Detect); Influenza A Untypeable Not Detected (Not Detect); Influenza B Not Detected (Not Detect); Mycoplasma pneumoniae Not Detected (Not Detect); Parainfluenza Virus 1 Not Detected (Not Detect); Parainfluenza Virus 2 Not Detected (Not Detect); Parainfluenza Virus 3 Not Detected (Not Detect); Parainfluenza Virus 4 Not Detected (Not Detect); Respiratory Syncytial Virus Not Detected (Not Detect)
--- NOTE | 2018-11-25 14:40 | Electrocardiograph Report ---
[place] [id number] Test Date: 2018-11-24 Pat Name: Anyi Win Department: [id number] Room: 2NE24 Gender: F [employer] Manager: : 1940 Requested By: Mukesh Kilgore Order Number: [id number] Reading MD: Hu Hutchison Measurements Intervals [place] Rate: 109 P: 68 SD: 172 QRS: -64 QRSD: 111 T: 82 QT: 351 QTc: 473 Interpretive Statements Sinus tachycardia Biatrial enlargement LVH with IVCD, LAD and secondary repol abnrm Electronically Signed On 11-25-2018 14:39:09 EDT by Hu Hutchison
[2018-11-25] MEDS: Ipratropium/Albuterol Neb 3 ML IH SCH ×3 (16:01→20:23)
[2018-11-25] MEDS ORDERED: *HR* Heparin 5,000 UNIT/ML VIAL IVP ONE (16:04)
[2018-11-25 17:01] LABS: Hematocrit 39.6 % (35.3-44.9); Hemoglobin 12.8 g/dL (11.5-15.4); Mean Corpuscular HGB Conc 32.3 g/dL (31.6-35.5); Mean Corpuscular Volume 89.8 fL (83.0-100.0); Mean Platelet Volume 12.5 fL (9.4-12.4); Red Blood Count 4.41 M/mcL (3.82-4.97); Red Cell Distribution Width 16.3 % (11.5-14.5)
[2018-11-25 17:03] LABS: INR 1.7; Prothrombin Time 19.1 Seconds (9.4-12.1)
[2018-11-25] MEDS: Heparin 25,000 UNIT/250 ML D5W 25,000 UNIT/250 ML IV.SOLN IVC SCH (17:19)
[2018-11-25] MEDS ORDERED: Isovue-370 500 ML BOTTLE IVP ONE (18:17)
[2018-11-25] MEDS: *HR* Methadone 5 MG TABLET PO SCH (20:04)
[2018-11-25] MEDS: Azithromycin 500 MG in D5% in Water 250 ML IVPB SCH (20:05)
[2018-11-25] MEDS: methylPREDNISolone 125 MG/2 ML VIAL IVP SCH (23:12)
[2018-11-25] MEDS: *HR* Heparin 5,000 UNIT/ML VIAL IVP PRN (23:45)
[2018-11-26] MEDS: Ipratropium/Albuterol Neb 3 ML IH SCH ×3 (00:03→07:23)
[2018-11-26] MEDS: Piperacillin/Tazobactam 3.375 GM in 0.9 % Sodium Chloride Mini Bag 100 ML IVPB SCH ×3 (02:19→21:07)
[2018-11-26] MEDS ORDERED: Aminoglycoside Consult 1 EACH MC ONE (07:08)
[2018-11-26] MEDS ORDERED: *HR* Adenosine 6 MG/2 ML VIAL IVP ONE ×2 (09:10→09:14)
[2018-11-26] MEDS: methylPREDNISolone 125 MG/2 ML VIAL IVP SCH ×2 (09:27→17:22)
[2018-11-26] MEDS: *HR* Methadone 5 MG TABLET PO SCH ×3 (09:27→21:07)
[2018-11-26] MEDS: *HR* Heparin 5,000 UNIT/ML VIAL IVP PRN ×2 (09:28→17:20)
[2018-11-26] MEDS ORDERED: Amiodarone Premix 360 MG/200 ML BAG IVC ONE ×2 (09:28→09:34)
[2018-11-26] MEDS ORDERED: Amiodarone Premix 150 MG/100 ML BAG IVPB ONE (09:34)
[2018-11-26 09:42] LABS: Hematocrit 38.9 % (35.3-44.9); Hemoglobin 12.7 g/dL (11.5-15.4); Mean Corpuscular HGB Conc 32.6 g/dL (31.6-35.5); Mean Corpuscular Volume 88.8 fL (83.0-100.0); Mean Platelet Volume 12.7 fL (9.4-12.4); Platelet Count 185 K/mcL (140-400); Red Blood Count 4.38 M/mcL (3.82-4.97); Red Cell Distribution Width 16.1 % (11.5-14.5)
[2018-11-26] MEDS ORDERED: Amiodarone Premix 360 MG/200 ML BAG IVC SCH (09:45)
--- NOTE | 2018-11-26 09:52 | Event Note ---
Date of Encounter: 11/26/18 Time of Encounter: 09:00 Rapid response Rapid response was called this morning at 903 Upon arriving at bedside patient was found to be in SVT She was asymptomatic and alert and oriented denying any chest pain or shortness of breath Vasovagal maneuvers were performed with no resolution Patient was then given adenosine 6 mg again with no resolution of symptoms Patient was then given adenosine 12 mg again with no resolution of symptoms Patient was then started on amiodarone drip and transferred to progressive unit for further monitoring. Will discuss with cardiology for recommendations
[2018-11-26 10:07] LABS: BUN/Creatinine Ratio 31 (6-26); Blood Urea Nitrogen 19 mg/dL (8-23); Calcium 9.3 mg/dL (8.6-10.3); Carbon Dioxide 23 mEq/L (23-29); Chloride 103 mEq/L (98-107); Glucose 174 mg/dL (70-105); Magnesium 1.8 mg/dL (1.6-2.6); Osmolality,Calculated 284 (280-300); Potassium 3.3 mEq/L (3.5-5.1); Sodium 134 mEq/L (136-145); eGFR For African Americans > 60 (> 60); eGFR For Non-African Americans > 60 (> 60)
[2018-11-26 10:10] LABS: Lymphocytes # 0.6 K/mcL (0.6-4.6); Neutrophils # 31.4 K/mcL (1.6-8.9); Platelet Estimate Normal (Normal)
[2018-11-26 10:11] LABS: Anisocytosis 1+ (Not Present)
[2018-11-26 10:12] LABS: Troponin I 0.38 ng/mL (< 0.04)
--- NOTE | 2018-11-26 10:13 | Cardiology Consult Note ---
<Dottie Rangel - Last Filed: 11/26/18 10:49> Date of Encounter: 11/26/18 Time of Encounter: 09:45 Assessment and Plan (1) Elevated troponin Current Visit: Yes Status: Acute Peak troponin 0.45 with downward trend in the setting of acute encephalopathy and respiratory failure secondary to sepsis. CTA demonstrated multi-focal bilateral PNA, WBC 36. ECG without acute ischemic changes. Patient denies chest pain/angina upon exam; however she does describe pleuritic pain induced with cough. No indication for cardiac rehab at this time. Check TTE to evaluate structure and function. (2) Afib Current Visit: Yes Status: Acute Patient reports hx of PAF--reports one episode of afib in the past, was not recommended to start anticoagulation. Afib with RVR in the setting of sepsis secondary to multifocal bilateral PNA, WBB 36. Amiodarone gtt started by primary team, now HR's 120-140's upon exam. Denies palpitations, dizziness. Discussed with Dr. Reddy; will add cardizem gtt, titrate to keep HR less than 110. Once rate controlled, transition to oral cardizem. TTE pending. Suspect HR to improve as sepsis is treated. [id number]=5 (age, female). Continue heparin gtt for now. Given recurrence, recommend [facility] prior to discharge. Will further discuss and review with Dr. Jamir Reddy. Qualifiers: Atrial fibrillation type: paroxysmal Qualified Code(s): I48.0 - Paroxysmal atrial fibrillation Discussion w patient/family: The assessment and plan as outlined above was discussed with the patient and/or family members who expressed understanding and agreement. All questions were answered. Thank you for involving us in the care of your patient. Please call with any questions. The patient will be discussed and reviewed with Dr. Reddy, changes to be made accordingly. History of Present Illness Consult date: 11/26/18 Requesting physician: Clyde Preciado Consult reason: elevated trop Chief complaint: Confusion History of present illness: Ms. Win is a 78 year old female with PMHx significant of hypertension, PAF, sarcoidosis and history of chronic low back pain with multiple surgeries resulting in opioid addiction and currently on a methadone taper and medical marijuana who presented to the ED with family due to concern for altered mental status. Patient reports she was "out of it." Of note, patient and family report multiple admissions over the past month for urosepsis. Reports flu-like symptoms for the past week leading up to hospitalization. Rapid response called this morning for reported SVT, rate 180 BPM. Attempted valsava maneuver, adenosine 6 mg and adenosine 12 mg given without success. Patient was then started on IV amiodarone gtt. Blood pressure remained stable during event, she was transferred to nursing unit. No prior CV testing reported. Past Med Surg Social Fam HX - Past Medical History Attestation: Yes The following information was validated with the patient. Source: patient Medical history: hypertension, other (chronic pain) Additional medical history: sarcoidosis - Past Surgical History Surgical History: other (mulitiple back surgeries) - Social History Smoking Status: Never smoker Smokeless Tobacco Status: No Alcohol use: none Drug use: marijuana - Family History Mother History Unknown: Yes Father History Unknown: Yes Medications and Allergies Cyanocobalamin (Vitamin B-12) [Vitamin B12] 11/25/18 [History] Fluconazole [Diflucan] 200 mg PO DAILY 11/25/18 [History] Lactobacillus Combination No.8 [Adult Probiotic] 11/25/18 [History] Levothyroxine [Synthroid] 125 mcg PO 0630 11/25/18 [History] Linaclotide [Linzess] 72 mcg PO 11/25/18 [History] Lisinopril [Zestril] 10 mg PO DAILY 11/25/18 [History] Lubiprostone [Amitiza] 24 mcg PO 11/25/18 [History] Magnesium Hydroxide [Milk of Magnesia] 400 mg PO 11/25/18 [History] Methadone Oral Concentrate [Methadone] 5 mg PO TID 11/25/18 [History] Mirabegron [Myrbetriq] 50 mg PO 11/25/18 [History] Multivitamin [Daily Multiple Vitamin] 1 each PO 11/25/18 [History] Naloxegol Oxalate [Movantik] 25 mg PO 11/25/18 [History] Pantoprazole Sodium [Protonix] 40 mg PO 11/25/18 [History] Sennosides [Senokot] 8.6 mg PO 11/25/18 [History] Zolpidem [Ambien] 10 mg PO HS 11/25/18 [History] Allergy/AdvReac Type Severity Reaction Status Date / Time acetaminophen [From [place]] Allergy Hives Verified 11/25/18 03:08 clarithromycin [From Biaxin] Allergy See Verified 11/25/18 03:08 Comments codeine Allergy Hives Verified 11/25/18 03:08 hydrocodone [From [place]] Allergy Hives Verified 11/25/18 03:08 morphine Allergy Hallucinati Verified 11/25/18 03:08 ng sulfamethoxazole AdvReac Itching Verified 11/25/18 02:59 [From Septra] trimethoprim [From Septra] AdvReac Itching Verified 11/25/18 02:59 All Systems Review: The remainder of the systems were reviewed and are negative - Cardiovascular Cardiovascular: as per HPI Physical Examination Vital Signs, Last 4 Hours Temp Pulse Resp BP Pulse Ox 11/26/18 08:43 91 11/26/18 07:23 16 91 11/26/18 06:32 98.6 F 96 155/84 91 General: Conversant HEENT: Atraumatic, Normocephaly Cardiac: Other (irregularly irregular) Lungs: Other (decreased bibasilar, scattered rhonchi) Neuro: Alert and responsive Abdomen: Soft Skin: No rashes noted on visualized skin Musculoskeletal: No Chest Wall Tenderness Extremities: No Edema, Normal Pulses Results 11/26/18 09:30 11/26/18 09:30 Lab Results 11/25/18 11/25/18 11/25/18 13:40 16:04 16:04 WBC 36.0 H* Hgb 12.8 Hct 39.6 Plt Count 166 INR 1.7 Sodium Potassium Chloride Carbon Dioxide BUN Creatinine Glucose Calcium Magnesium Troponin I 0.45 H* 11/26/18 11/26/18 09:30 09:30 WBC 32.0 H* Hgb 12.7 Hct 38.9 Plt Count 185 INR Sodium 134 L Potassium 3.3 L Chloride 103 Carbon Dioxide 23 BUN 19 Creatinine 0.61 Glucose 174 H Calcium 9.3 Magnesium 1.8 Troponin I 0.38 H* Active Medications Acetaminophen (Tylenol) 650 mg PO Q6HR PRN PRN Reason: Mild Pain/Fever Stop: 05/26/19 20:36 Last Admin: 11/25/18 07:52 Dose: 650 mg Documented by: Albuterol/Ipratropium (Duoneb) 3 ml IH [id number] DARYL Stop: 05/27/19 15:01 Last Admin: 11/26/18 07:23 Dose: 3 ml Documented by: Heparin Sodium (Porcine) (Heparin) 3,300 unit 60 unit/kg (3300 unit) IVP Q6HR PRN PRN Reason: SEE COMMENTS Stop: 05/27/19 16:05 Last Admin: 11/26/18 09:28 Dose: 3,300 unit Documented by: Heparin Sodium (Porcine) (Heparin) 1,700 unit 30 unit/kg (1700 unit) IVP Q6H PRN PRN Reason: SEE COMMENTS Stop: 05/27/19 16:05 Azithromycin 500 mg/ Dextrose 250 mls @ 252 mls/hr IVPB Q24H DARYL Stop: 05/26/19 21:01 Last Infusion: 11/25/18 21:05 Dose: Infused Documented by: Piperacillin Sod/Tazobactam (Sod 3.375 gm/ Sodium Chloride) 100 mls @ 25 mls/hr IVPB Q8H DARYL Stop: 05/27/19 03:01 Last Infusion: 11/26/18 06:19 Dose: Infused Documented by: Vancomycin HCl 1,000 mg/ (Sodium Chloride) 250 mls @ 167 mls/hr IVPB Q24H [facility]; Protocol Stop: 05/27/19 19:01 Last Infusion: 11/25/18 20:07 Dose: Infused Documented by: Heparin Sodium/Dextrose (Heparin 25,000 Unit/250 Ml D5w) 25,000 unit in 250 mls @ 6.672 mls/hr IVC .Q24H [facility]; Protocol Stop: 05/27/19 16:16 Last Titration: 11/26/18 09:28 Dose: 20 unit/kg/hr, 11.1 mls/hr Documented by: Amiodarone HCl/Dextrose (Amiodarone Drip Premix 360mg/200ml) 360 mg in 200 mls @ 33.333 mls/hr IVC ONCE ONE Stop: 11/26/18 15:33 Last Admin: 11/26/18 09:30 Dose: 1 mg/min, 33.3 mls/hr Documented by: Amiodarone HCl/Dextrose (Amiodarone Drip Premix 360mg/200ml) 360 mg in 200 mls @ 16.667 mls/hr IVC CONT DARYL Stop: 05/28/19 09:46 Methadone HCl (Methadone) 2.5 mg PO TID [facility] Stop: 05/27/19 21:01 Last Admin: 11/26/18 09:27 Dose: 2.5 mg Documented by: Methylprednisolone (Solu-Medrol) 60 mg IVP Q8HR [facility] Stop: 05/28/19 00:01 Last Admin: 11/26/18 09:27 Dose: 60 mg Documented by: Naloxone HCl (Narcan) 0.4 mg IVP Q2MPRN PRN PRN Reason: SEE COMMENTS Stop: 05/26/19 20:36 - Imaging and Cardiology Echo: pending - EKG Interpretation EKG results cardiology: personally reviewed Consult Discharge Plan - Plan Referrals: NONE,PCP [Primary Care Provider] - <Jamir Reddy - Last Filed: 11/26/18 13:36> Date of Encounter: 11/26/18 - Attending Attestation I have personally performed a face to face evaluation on this patient. I have reviewed and agree with the care plan. History and Exam by me shows: SVT in setting of sepsis. Developed AF after adenosine and has history of AF previously, now in NSR. Would D/C amio and start po cardizem. Assessment and Plan Discussion w patient/family: The assessment and plan as outlined above was discussed with the patient and/or family members who expressed understanding and agreement. All questions were answered. Thank you for involving us in the care of your patient. Please call with any questions. History of Present Illness History of present illness: Ms. Win is a 78 year old female All Systems Review: The remainder of the systems were reviewed and are negative Physical Examination Vital Signs, Last 4 Hours Temp Pulse Resp BP Pulse Ox 11/26/18 12:46 92 11/26/18 12:01 97.7 F 93 18 142/87 97 11/26/18 10:05 143 11/26/18 10:00 98.4 F 141 18 129/91 94 11/26/18 09:35 98.4 F 130 17 119/86 95 Results 11/26/18 09:30 11/26/18 09:30 Lab Results 11/25/18 11/25/18 11/25/18 13:40 16:04 16:04 WBC 36.0 H* Hgb 12.8 Hct 39.6 Plt Count 166 INR 1.7 Sodium Potassium Chloride Carbon Dioxide BUN Creatinine Glucose Calcium Magnesium Troponin I 0.45 H* 11/26/18 11/26/18 09:30 09:30 WBC 32.0 H* Hgb 12.7 Hct 38.9 Plt Count 185 INR Sodium 134 L Potassium 3.3 L Chloride 103 Carbon Dioxide 23 BUN 19 Creatinine 0.61 Glucose 174 H Calcium 9.3 Magnesium 1.8 Troponin I 0.38 H*
--- NOTE | 2018-11-26 12:05 | Pulmonology Consult Note ---
Date of Encounter: 11/26/18 Time of Encounter: 10:20 Assessment and Plan (1) Acute respiratory failure with hypoxia Current Visit: Yes Status: Acute This patient is presenting with altered mental status and this is most likely related to sepsis, however with history of underlying sarcoidosis cardiac and COMPUTATOR sarcoidosis needs to be in the differential diagnosis. Patient is feeling better at this time and to keep her oxygen saturation around 92%. Hopefully with treatment this will get better. (2) Pneumonia Current Visit: Yes Status: Acute Patient made at least 3 criteria for pneumonia (CURB-65). She has confusion, BUN is elevated and with her age and she needs to be treated in a close monitor and 2 N. is appropriate, however if condition worsened and she needs to be transferred to ICU. She is on broad-spectrum antibiotics and to follow up cultures and then tailor the antibiotics based on the result. There is no plan for bronchoscopy at this time since patient is on heparin and hemodynamically not stable. Have discussed this with patient and Dr. Feliz was with the patient and they both understand and agreed with plan of care. Thank you for consultation and we will continue follow-up. Qualifiers: Pneumonia type: due to other aerobic Gram-negative bacteria Laterality: unspecified laterality Lung location: unspecified part of lung Qualified Code(s): J15.6 - Pneumonia due to other Gram-negative bacteria (3) Sepsis Current Visit: Yes Status: Acute Patient is on antibiotic and to be careful with aggressive fluid due to her respiratory compromise. Since there is Gram negative organism in the sputum, will stop azithromycin and double cover for gram-negative and once sensitivity finalize, then vancomycin can be stopped. Qualifiers: Sepsis type: sepsis due to unspecified organism Qualified Code(s): A41.9 - Sepsis, unspecified organism (4) Personal history of sarcoidosis Current Visit: Yes Status: Acute I have advised patient to get that record and then we will review it to have more information about this diagnosis. Again concerned about cardiac sarcoidosis and cardiology is following. I do not feel she is needs high-dose systemic steroid and was started to taper it off. History of Present Illness Consult date: 11/26/18 Requesting physician: Clyde Preciado Reason for consult: pneumonia Chief complaint: Alter mental status History of present illness: This is a very pleasant 78-year-old female with significant past medical history of sarcoidosis and she stated this was diagnosed about to uterine have and apparently she had a biopsy done with the diagnosis. She stated she was not treated for sarcoidosis, but Ludmila was found at that time and she was treated for that. She is not on oxygen and she is not on inhalers on the regular basis. She denies any significant lung related symptoms to sarcoidosis. Her main complaints is constipation and she has been on methadone for pain control and she has chronic low back pain with multiple orthopedic surgeries. Patient also presented with poor appetite and she denies any significant productive cough or wheezing and no significant dyspnea according to her. She denies any skin rashes. This time she came with mental status change and her CT chest showed evidence of multifocal pneumonia and no evidence of any acute intracranial pathologies. She has arrhythmia with history of A. fib and she is being treated with amiodarone and she is been on heparin as well. Cardiology has seen the patient. 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 She denies any night sweats and she does take marijuana to help her pain and she does have poor appetite. Patient has been traveling and she has been in [place]. Past Med Surg Social Fam HX - Past Medical History Medical history: hypertension, other (chronic pain) Additional medical history: sarcoidosis - Past Surgical History Surgical History: other (mulitiple back surgeries) - Social History Smoking Status: Never smoker Smokeless Tobacco Status: No Alcohol use: none Drug use: marijuana - Family History Mother History Unknown: Yes Father History Unknown: Yes Medications and Allergies Cyanocobalamin (Vitamin B-12) [Vitamin B12] 11/25/18 [History] Fluconazole [Diflucan] 200 mg PO DAILY 11/25/18 [History] Lactobacillus Combination No.8 [Adult Probiotic] 11/25/18 [History] Levothyroxine [Synthroid] 125 mcg PO 0630 11/25/18 [History] Linaclotide [Linzess] 72 mcg PO 11/25/18 [History] Lisinopril [Zestril] 10 mg PO DAILY 11/25/18 [History] Lubiprostone [Amitiza] 24 mcg PO 11/25/18 [History] Magnesium Hydroxide [Milk of Magnesia] 400 mg PO 11/25/18 [History] Methadone Oral Concentrate [Methadone] 5 mg PO TID 11/25/18 [History] Mirabegron [Myrbetriq] 50 mg PO 11/25/18 [History] Multivitamin [Daily Multiple Vitamin] 1 each PO 11/25/18 [History] Naloxegol Oxalate [Movantik] 25 mg PO 11/25/18 [History] Pantoprazole Sodium [Protonix] 40 mg PO 11/25/18 [History] Sennosides [Senokot] 8.6 mg PO 11/25/18 [History] Zolpidem [Ambien] 10 mg PO HS 11/25/18 [History] Allergy/AdvReac Type Severity Reaction Status Date / Time acetaminophen [From [place]] Allergy Hives Verified 11/25/18 03:08 clarithromycin [From Biaxin] Allergy See Verified 11/25/18 03:08 Comments codeine Allergy Hives Verified 11/25/18 03:08 hydrocodone [From [place]] Allergy Hives Verified 11/25/18 03:08 morphine Allergy Hallucinati Verified 11/25/18 03:08 ng sulfamethoxazole AdvReac Itching Verified 11/25/18 02:59 [From Septra] trimethoprim [From [place]] AdvReac Itching Verified 11/25/18 02:59 All Systems: The remainder of the systems were reviewed and are negative Physical Examination Vital Signs: Vital Signs, Last 4 Hours Temp Pulse Resp BP Pulse Ox 11/26/18 10:05 143 11/26/18 10:00 98.4 F 141 18 129/91 94 11/26/18 09:35 98.4 F 130 17 119/86 95 11/26/18 09:30 98.4 F 131 18 120/83 95 11/26/18 08:43 91 General appearance: no acute distress Eyes: nonicteric ENT: oropharynx dry Neck: supple, no lymphadenopathy Effort: mildly labored Inspection: hyperextended Auscultation: bilateral: rhonchi Percussion: bilateral: not dull Cardiovascular: irregular rhythm Gastrointestinal: normoactive bowel sounds, soft, non-distended Extremities: no cyanosis, no edema normal mental status, non-focal exam mood appropriate Results - Laboratory Findings CBC and BMP: 11/26/18 09:30 11/26/18 09:30 PT/INR, D-dimer PT 19.1 Seconds (9.4-12.1) H 11/25/18 16:04 Abnormal lab findings: Abnormal lab results WBC 32.0 K/mcL (4.3-11.1) H* 11/26/18 09:30 RDW 16.1 % (11.5-14.5) H 11/26/18 09:30 MPV 12.7 fL (9.4-12.4) H 11/26/18 09:30 Immature Gran % 9.7 % (0-4) H 11/25/18 00:32 10.0 % (0-4) H 11/26/18 09:30 31.4 K/mcL (1.6-8.9) H 11/26/18 09:30 1.9 K/mcL (0.0-1.3) H 11/24/18 18:05 Immature Plt Fraction 9.0 % (1.1-6.1) H 11/25/18 16:04 1+ (Not Present) A 11/26/18 09:30 PT 19.1 Seconds (9.4-12.1) H 11/25/18 16:04 Heparin Anti-Xa, Unfract 0.01 IU/mL (0.30-0.70) L 11/26/18 07:04 Sodium 134 mEq/L (136-145) L 11/26/18 09:30 Potassium 3.3 mEq/L (3.5-5.1) L 11/26/18 09:30 BUN 24 mg/dL (8-23) H 11/25/18 00:32 31 (6-26) H 11/26/18 09:30 Glucose 174 mg/dL (70-105) H 11/26/18 09:30 POC Glucose 128 mg/dL (70-99) H 11/26/18 06:37 Lactic Acid 2.5 mmol/L (0.5-2.2) H 11/25/18 08:25 0.38 ng/mL (< 0.04) H* 11/26/18 09:30 2.9 g/dL (3.5-5.7) L 11/25/18 00:32 4.3 g/dL (2.4-3.5) H 11/25/18 00:32 0.7 (1.1-2.2) L 11/25/18 00:32 TSH 0.106 mcIU/mL (0.340-5.600) L 11/24/18 18:05 Free T3 1.66 pg/mL (2.50-3.90) L 11/25/18 08:25 30 mg/dL (Neg-Trace) H 11/24/18 17:29 Moderate (Negative) H 11/24/18 17:29 30-50 per hpf (0-3) H 11/24/18 17:29 5-15 per hpf (0-3) H 11/24/18 17:29 Ur Squamous Epith Cells Many per lpf (None-Few) H 11/24/18 17:29 Ur Culture Indicated? YES (NO) A 11/24/18 17:29 U Marijuana (THC) Screen Positive ng/mL (Cutoff = 50) H 11/24/18 17:29 - Microbiology Findings Microbiology Findings: Microbiology, Last 48 Hours 11/25/18 01:55 Sputum Culture - Preliminary Sputum Gram Negative Duc 11/24/18 17:29 Urine Culture - Final Urine,Clean Catch No significant growth. 11/24/18 17:29 Legionella Antigen - Final Urine,Clean Catch 11/24/18 18:05 Blood Culture - Preliminary Peripheral Venipuncture Culture is incubating and being continuously monitored for growth. Final report to follow. 11/24/18 18:11 Blood Culture - Preliminary Peripheral Venipuncture Culture is incubating and being continuously monitored for growth. Final report to follow. - Diagnostic Findings CT scan - chest: report reviewed, image reviewed - Clinical Findings Intake & Output: Intake & Output 11/25/18 11/26/18 11/26/18 23:59 07:59 15:59 Intake Total 887 / 2577 1100 / 1153 53 / 1153 Output Total 700 / 700 Balance 887 / 2577 400 / 453 53 / 453 Weight 59.4 kg Consult Discharge Plan - Plan Referrals: NONE,PCP [Primary Care Provider] -
[2018-11-26] MEDS ORDERED: *HR* Adenosine 6 MG/2 ML SYRINGE IVP ONE (12:21)
[2018-11-26] MEDS ORDERED: *HR* Amiodarone Premix 150 MG/100 ML BAG IVPB ONE (12:21)
[2018-11-26] MEDS ORDERED: *HR* Adenosine 12 MG/4 ML VIAL IV ONE (12:21)
[2018-11-26] MEDS: Levalbuterol Neb 1.25 MG/3 ML IH SCH ×2 (15:35→21:38)
[2018-11-26] MEDS: Heparin 25,000 UNIT/250 ML D5W 25,000 UNIT/250 ML IV.SOLN IVC SCH (15:55)
--- NOTE | 2018-11-26 18:19 | Internal Med Progress Note ---
Hospitalist Progress Note - Encounter Date of Encounter: 11/26/18 Time of Encounter: 11:00 - Subjective Interval History: Patient is a 78-year-old female who is from [place] visiting family who presents due to confusion found to have acute hypoxic respiratory failure secondary to sepsis with pneumonia. Rapid response was called this morning and patient was found to be in SVT She was asymptomatic and alert and oriented denying any chest pain or shortness of breath. Patients rhythm converted to normal sinus rhythm after being placed on amiodarone and Cardizem drip. Patient without any signs of confusion on my exam during rapid response or during morning rounds as she is able to give appropriate past medical history this morning - Exam Vitals: Temp Pulse Resp BP Pulse Ox 97.9 F 90 18 124/66 93 11/26/18 16:41 11/26/18 16:41 11/26/18 16:41 11/26/18 16:41 11/26/18 16:41 Exam: Gen.: Nonacute distress, alert and oriented 3 ENT: Mucosal membranes moist Respiratory: Lungs are clear to auscultation bilaterally without any wheezing rhonchi or rales Cardiovascular: Normal S1 and S2 regular rate rhythm no murmurs rubs or gallops Abdomen: Soft, nontender and nondistended with positive bowel sounds Extremities: No lower extremity edema Skin: Normal color - Assessment and Plan (1) Pneumonia Current Visit: Yes Status: Acute Assessment and Plan: Patient afebrile but without much improvement in leukocytosis morning CT angiogram of the chest showed multifocal bilateral pneumonia Patient still requiring increased amounts of O2 supplementation at 4 L of nasal cannula. Will continue IV antibiotics Pulmonology following and appreciate recommendations (2) Acute respiratory failure with hypoxia Current Visit: Yes Status: Acute Assessment and Plan: Patient requiring O2 supplementation this morning at 4 L/m Suspect acute hypoxic respiratory failure secondary to the above Will monitor on pulse oximetry and wean as tolerates (3) Acute encephalopathy Current Visit: Yes Status: Resolved Assessment and Plan: Patient is alert and oriented this morning during my exam and is able to give appropriate medical history CT of the head negative for any acute findings on admission Will continue to monitor (4) Sepsis Current Visit: Yes Status: Acute Assessment and Plan: Patient presents with 2 of 4 SIRS criteria with tachycardia and a significant leukocytosis with left shift with evidence of multifocal bilateral pneumonia on CT angiogram of the chest. Continue IV antibiotics (5) Elevated troponin Current Visit: Yes Status: Acute Assessment and Plan: Patient found to have elevated troponins: 0.15->0.12->0.30 Suspect secondary to demand ischemia due to the above However cardio consulted with recommendations to start patient on heparin drip and will continue to monitor (6) GERD (gastroesophageal reflux disease) Current Visit: Yes Status: Acute Assessment and Plan: Continue home dose of PPI (7) HTN (hypertension) Current Visit: Yes Status: Acute Assessment and Plan: Due to patient sepsis will hold antihypertensive medication Will continue to monitor (8) Hypothyroid Current Visit: Yes Status: Acute Assessment and Plan: Patient with a TSH of 0.106 on admission; free T3 1.66 and free T4 1.25 Continue home dose of levothyroxine (9) Hx of opioid abuse Current Visit: Yes Status: Acute Assessment and Plan: Currently on methadone and marijuana tincture. - Time Spent with Patient Total time spent is greater than 50% in coordination of care (as documented) at patient's floor/unit and/or counseling patient: Internal Medicine: Result - Labs CBC & Chem 7: 11/26/18 09:30 11/26/18 09:30 Labs: Short CBC 11/26/18 Range/Units 09:30 WBC 32.0 H* (4.3-11.1) K/mcL Hgb 12.7 (11.5-15.4) g/dL Hct 38.9 (35.3-44.9) % Plt Count 185 (140-400) K/mcL Neutrophils # 31.4 H (1.6-8.9) K/mcL BMP 11/26/18 09:30 Sodium 134 L Potassium 3.3 L Chloride 103 Carbon Dioxide 23 BUN 19 Creatinine 0.61 Glucose 174 H Calcium 9.3 Cardiac Enzymes 11/26/18 Range/Units 09:30 Troponin I 0.38 H* (< 0.04) ng/mL - ABG Interpretation ABG results: PT/INR, D-dimer PT 19.1 Seconds (9.4-12.1) H 11/25/18 16:04 - Impressions Impressions Chest CTA 11/25/18 18:17 IMPRESSION: 1. No acute pulmonary artery embolism. 2. Cardiomegaly with multifocal bilateral pneumonia. Recommend radiographic follow-up until resolution. D/ / 11/25/2018 19:31:35 Oliver Lopez MD / john Interpreting Provider: Oliver Lopez MD Consult Discharge Plan - Plan Referrals: NONE,PCP [Primary Care Provider] - (1) Pneumonia Qualifiers: Pneumonia type: due to other aerobic Gram-negative bacteria Laterality: unspe cified laterality Lung location: unspecified part of lung Qualified Code(s): J15.6 - Pneumonia due to other Gram-negative bacteria (4) Sepsis Qualifiers: Sepsis type: sepsis due to unspecified organism Qualified Code(s): A41.9 - Sepsis, unspecified organism
[2018-11-27] MEDS: MOM Conc 10 ML UD.LIQ PO SCH ×2 (01:46→20:50)
[2018-11-27] MEDS: Levalbuterol Neb 1.25 MG/3 ML IH SCH ×4 (03:59→22:17)
[2018-11-27] MEDS: Piperacillin/Tazobactam 3.375 GM in 0.9 % Sodium Chloride Mini Bag 100 ML IVPB SCH ×2 (04:09→12:03)
[2018-11-27] MEDS: methylPREDNISolone 125 MG/2 ML VIAL IVP SCH ×2 (06:13→17:01)
--- NOTE | 2018-11-27 06:44 | Event Note ---
Date of Encounter: 11/27/18 Time of Encounter: 06:10 Alerted by pts. nurse that the pt. was refusing her IVPB Ciprofloxacin this morning. Pt. was visited by a family friend last night who is a physician. This friend told the pt. not to take either medication d/t her SVT. He told her the medications likely caused her SVTs. Nurse attempted to educate the pt., however pt. is adamantly refusing the morning Ciprofloxacin. Nurse instructed to leave a detailed note stating that the pt. was declining current abx therapy d/t intervention from a physician she knows who instructed her not to take them. Patient is sepsis criteria d/t WBC of 32.0, current PNA, and tachycardia. Last lactic on 11/25 was 2.5. No recent lactic ordered so stat order placed. Pt. is not currently on IV fluids. Nurse instructed to continue monitoring the pt. very closely and alert me immediately of any adverse changes.
[2018-11-27 07:51] LABS: BUN/Creatinine Ratio 33 (6-26); Blood Urea Nitrogen 18 mg/dL (8-23); Calcium 9.2 mg/dL (8.6-10.3); Carbon Dioxide 25 mEq/L (23-29); Chloride 105 mEq/L (98-107); Glucose 130 mg/dL (70-105); Osmolality,Calculated 286 (280-300); Potassium 3.3 mEq/L (3.5-5.1); Sodium 136 mEq/L (136-145); eGFR For African Americans > 60 (> 60); eGFR For Non-African Americans > 60 (> 60)
[2018-11-27 07:52] LABS: Red Cell Distribution Width 15.9 % (11.5-14.5)
[2018-11-27 07:54] LABS: Hematocrit 32.6 % (35.3-44.9); Hemoglobin 10.6 g/dL (11.5-15.4); Mean Corpuscular HGB Conc 32.5 g/dL (31.6-35.5); Mean Corpuscular Hemoglobin 28.6 pg (28.0-33.3); Mean Corpuscular Volume 88.1 fL (83.0-100.0); Mean Platelet Volume 12.5 fL (9.4-12.4); Platelet Count 174 K/mcL (140-400); White Blood Count 26.8 K/mcL (4.3-11.1)
[2018-11-27] MEDS: *HR* Methadone 5 MG TABLET PO SCH ×3 (08:23→20:49)
[2018-11-27] MEDS: *HR* Heparin 5,000 UNIT/ML VIAL IVP PRN ×4 (08:23→23:25)
[2018-11-27 08:30] LABS: Lymphocytes # 0.5 K/mcL (0.6-4.6); Neutrophils # 26.3 K/mcL (1.6-8.9)
[2018-11-27] MEDS: Heparin 25,000 UNIT/250 ML D5W 25,000 UNIT/250 ML IV.SOLN IVC SCH ×2 (08:30→23:27)
[2018-11-27 08:31] LABS: Platelet Estimate Normal (Normal)
--- NOTE | 2018-11-27 10:28 | Cardiology Progress Note ---
Date of Encounter: 11/27/18 Time of Encounter: 10:00 Assessment and Plan (1) Elevated troponin Current Visit: Yes Status: Acute Per cardiology: -Peak troponin 0.45 with downward trend in the setting of acute encephalopathy and respiratory failure secondary to sepsis. -CTA demonstrated multi-focal bilateral PNA, WBC 36. ECG without acute ischemic changes. -Patient denies chest pain/angina upon exam; however she does describe pleuritic pain induced with cough. -No indication for cardiac rehab at this time. -Check TTE to evaluate structure and function. (2) Afib Current Visit: Yes Status: Acute Per cardiology: -SVT this admission that broke into a.fib with adenosine. -Patient reports hx of PAF--reports one episode of afib in the past, was not recommended to start anticoagulation. -Patient was initially started on amiodarone drip and converted to SR. Now on oral cardizem. -TTE pending. -Now in SR and HR controlled. -[id number] (age, female). Continue heparin gtt for now. Given recurrence, recommend longterm AC prior to discharge. Will determine keno terminal operator a nticoagulation pending TTE. -Will switch short acting cardizem to long acting. Qualifiers: Atrial fibrillation type: paroxysmal Qualified Code(s): I48.0 - Paroxysmal atrial fibrillation Discussion w patient/family: The assessment and plan as outlined above was discussed with the patient and/or family members who expressed understanding and agreement. All questions were answered. Thank you for involving us in the care of your patient. Please call with any questions. Discussed and reviewed with . Subjective Principal diagnosis: Pneumonia Interval history: Patient reports symptom improvement. Denies palpitations or fluttering. Reports breathing improved, however now reports post nasal drip. Objective Vital Signs, Last 4 Hours Temp Pulse Resp BP Pulse Ox 11/27/18 08:00 67 11/27/18 07:29 97.6 F 68 18 162/78 95 General: Conversant, No Apparent Distress HEENT: Atraumatic, Normocephaly, Mucus Membranes Moist Neck: No JVD, Normal carotid pulses Cardiac: Reg Rate and Rhythm, Normal S1 and S2, No Murmur Lungs: Other (Lung sounds diminished throughout. ) Neuro: Alert and responsive, No focal deficits noted Abdomen: Soft, Non-Tender Skin: No rashes noted on visualized skin Musculoskeletal: No Chest Wall Tenderness Extremities: No Clubbing, No Cyanosis, No Edema, Normal Pulses Results 11/27/18 07:16 11/27/18 07:16 Lab Results Impressions Chest CTA 11/25/18 18:17 IMPRESSION: 1. No acute pulmonary artery embolism. 2. Cardiomegaly with multifocal bilateral pneumonia. Recommend radiographic follow-up until resolution. D/ / 11/25/2018 19:31:35 Oliver Lopez MD / john Interpreting Provider: Oliver Lopez MD Active Medications Acetaminophen (Tylenol) 650 mg PO Q6HR PRN PRN Reason: Mild Pain/Fever Stop: 05/26/19 20:36 Last Admin: 11/25/18 07:52 Dose: 650 mg Documented by: Diltiazem HCl (Cardizem Cd) 120 mg PO DAILY [facility] Stop: 05/29/19 12:01 Heparin Sodium (Porcine) (Heparin) 3,300 unit 60 unit/kg (3300 unit) IVP Q6HR PRN PRN Reason: SEE COMMENTS Stop: 05/27/19 16:05 Last Admin: 11/26/18 17:20 Dose: 3,300 unit Documented by: Heparin Sodium (Porcine) (Heparin) 1,700 unit 30 unit/kg (1700 unit) IVP Q6H PRN PRN Reason: SEE COMMENTS Stop: 05/27/19 16:05 Last Admin: 11/27/18 08:23 Dose: 1,700 unit Documented by: Piperacillin Sod/Tazobactam (Sod 3.375 gm/ Sodium Chloride) 100 mls @ 25 mls/hr IVPB Q8H DRAYL Stop: 05/27/19 03:01 Last Admin: 11/27/18 04:09 Dose: 25 mls/hr Documented by: Heparin Sodium/Dextrose (Heparin 25,000 Unit/250 Ml D5w) 25,000 unit in 250 mls @ 6.672 mls/hr IVC .Q24H DARYL; Protocol Stop: 05/27/19 16:16 Last Admin: 11/27/18 08:30 Dose: 28 unit/kg/hr, 15.6 mls/hr Documented by: Ciprofloxacin Lactate (Cipro Premix 200 Mg/100 Ml) 200 mg in 100 mls @ 100 mls/hr IVPB Q12HR [facility] Stop: 05/28/19 18:01 Last Admin: 11/27/18 06:11 Dose: Not Given Documented by: Levalbuterol HCl (Xopenex) 1.25 mg IH [id number] DARYL Stop: 05/28/19 16:01 Last Admin: 11/27/18 10:21 Dose: Not Given Documented by: Magnesium Hydroxide (Milk Of Magnesia Conc) 10 ml PO HS [facility] Stop: 05/28/19 23:46 Last Admin: 11/27/18 01:46 Dose: 10 ml Documented by: Methadone HCl (Methadone) 2.5 mg PO TID [facility] Stop: 05/27/19 21:01 Last Admin: 11/27/18 08:23 Dose: 2.5 mg Documented by: Methylprednisolone (Solu-Medrol) 60 mg IVP Q12HR [facility] Stop: 05/28/19 18:01 Last Admin: 11/27/18 06:13 Dose: 60 mg Documented by: Naloxone HCl (Narcan) 0.4 mg IVP Q2MPRN PRN PRN Reason: SEE COMMENTS Stop: 05/26/19 20:36 Laboratory Tests 11/24/18 11/27/18 11/27/18 18:05 07:16 07:16 WBC 26.8 H Hgb 10.6 L D Creatinine 0.55 L TSH 0.106 L - Imaging and Cardiology Chest Xray: report reviewed Echo: pending - EKG Interpretation EKG results cardiology: other (Telemetry reviewed with average HR previous 12 hours noted to be 76, SR.) Consult Discharge Plan - Plan Referrals: NONE,PCP [Primary Care Provider] -
[2018-11-27] MEDS: Diltiazem CD (24hr) 120 MG CAPSULE PO SCH (11:11)
[2018-11-27] MEDS: Acetaminophen 325 MG TABLET PO PRN (16:12)
--- NOTE | 2018-11-27 19:55 | Internal Med Progress Note ---
Hospitalist Progress Note - Encounter Date of Encounter: 11/27/18 Time of Encounter: 11:00 - Subjective Interval History: Patient is a 78-year-old female who is from [place] visiting family who presents due to confusion found to have acute hypoxic respiratory failure secondary to sepsis with pneumonia. Patient's leukocytosis continues to improve this morning and she has been afebrile. Patient's acute hypoxic respiratory failure has resolved and she has been weaned off supplemental oxygenation and is currently on room air. - Exam Vitals: Temp Pulse Resp BP Pulse Ox 97.9 F 83 18 137/67 97 11/27/18 16:30 11/27/18 16:30 11/27/18 16:30 11/27/18 16:30 11/27/18 16:30 Exam: Gen.: Nonacute distress, alert and oriented 3 ENT: Mucosal membranes moist Respiratory: Lungs are clear to auscultation bilaterally without any wheezing rhonchi or rales Cardiovascular: Normal S1 and S2 regular rate rhythm no murmurs rubs or gallops Abdomen: Soft, nontender and nondistended with positive bowel sounds Extremities: No lower extremity edema Skin: Normal color - Assessment and Plan (1) Pneumonia Current Visit: Yes Status: Acute Assessment and Plan: Patient afebrile leukocytosis continues to improve; she has also been weaned off supplemental oxygenation CT angiogram of the chest showed multifocal bilateral pneumonia Per pulmonary recommendations will change IV antibiotics to oral Omnicef Pulmonology following and appreciate recommendations (2) Acute respiratory failure with hypoxia Current Visit: Yes Status: Acute Assessment and Plan: Resolved; continue to monitor (3) Acute encephalopathy Current Visit: Yes Status: Resolved Assessment and Plan: Resolved; continue to monitor CT of the head negative for any acute findings on admission (4) Sepsis Current Visit: Yes Status: Resolved Assessment and Plan: Resolved; continue to monitor (5) Elevated troponin Current Visit: Yes Status: Acute Assessment and Plan: Patient found to have elevated troponins: 0.15->0.12->0.30->0.45->0.38 Suspect secondary to demand ischemia due to the above However cardio consulted with recommendations for echocardiogram Patient currently on heparin drip Cardiology following and appreciate recommendations (6) Afib Current Visit: Yes Status: Acute Assessment and Plan: Patient with SVT that turned into atrial fibrillation with adenosine [id number] (age, female) Cardiology following with recommendation for echocardiogram which is pending Continue heparin drip per cardiology recommendations (7) GERD (gastroesophageal reflux disease) Current Visit: Yes Status: Acute Assessment and Plan: Continue home dose of PPI (8) HTN (hypertension) Current Visit: Yes Status: Acute Assessment and Plan: Due to patient sepsis will hold antihypertensive medication Will continue to monitor (9) Hypothyroid Current Visit: Yes Status: Acute Assessment and Plan: Patient with a TSH of 0.106 on admission; free T3 1.66 and free T4 1.25 Continue home dose of levothyroxine (10) Hx of opioid abuse Current Visit: Yes Status: Acute Assessment and Plan: Currently on methadone and marijuana tincture. DVT Prophylaxis: On heparin drip as above - Time Spent with Patient Total time spent is greater than 50% in coordination of care (as documented) at patient's floor/unit and/or counseling patient: Internal Medicine: Result - Labs CBC & Chem 7: 11/27/18 07:16 11/27/18 07:16 Labs: Short CBC 11/27/18 Range/Units 07:16 WBC 26.8 H (4.3-11.1) K/mcL Hgb 10.6 L D (11.5-15.4) g/dL Hct 32.6 L (35.3-44.9) % Plt Count 174 (140-400) K/mcL Neutrophils # 26.3 H (1.6-8.9) K/mcL BMP 11/27/18 07:16 Sodium 136 Potassium 3.3 L Chloride 105 Carbon Dioxide 25 BUN 18 Creatinine 0.55 L Glucose 130 H Calcium 9.2 - ABG Interpretation ABG results: PT/INR, D-dimer PT 19.1 Seconds (9.4-12.1) H 11/25/18 16:04 - Impressions Impressions Chest CTA 11/25/18 18:17 IMPRESSION: 1. No acute pulmonary artery embolism. 2. Cardiomegaly with multifocal bilateral pneumonia. Recommend radiographic follow-up until resolution. D/ / 11/25/2018 19:31:35 Oliver Lopez MD / john Interpreting Provider: Oliver Lopez MD Consult Discharge Plan - Plan Referrals: NONE,PCP [Primary Care Provider] - (1) Pneumonia Qualifiers: Pneumonia type: due to other aerobic Gram-negative bacteria Laterality: unspecified laterality Lung location: unspecified part of lung Qualified Code(s): J15.6 - Pneumonia due to other Gram-negative bacteria (4) Sepsis Qualifiers: Sepsis type: sepsis due to unspecified organism Qualified Code(s): A41.9 - Sepsis, unspecified organism (6) Afib Qualifiers: Atrial fibrillation type: paroxysmal Qualified Code(s): I48.0 - Paroxysmal atrial fibrillation
[2018-11-27] MEDS: Cefdinir 300 MG CAPSULE PO SCH (20:49)
[2018-11-28] MEDS ORDERED: Ketorolac 15 MG/ML VIAL IVP PRN (00:25)
[2018-11-28] MEDS: niCARdipine 20 MG/200 ML MLS IVC SCH ×3 (03:19→11:02)
[2018-11-28] MEDS: Levalbuterol Neb 1.25 MG/3 ML IH SCH ×4 (04:32→22:07)
[2018-11-28] MEDS: methylPREDNISolone 125 MG/2 ML VIAL IVP SCH (05:55)
[2018-11-28] MEDS: *HR* Methadone 5 MG TABLET PO SCH ×3 (07:55→20:47)
[2018-11-28] MEDS: Cefdinir 300 MG CAPSULE PO SCH ×2 (07:55→20:47)
[2018-11-28] MEDS: Diltiazem CD (24hr) 120 MG CAPSULE PO SCH (07:55)
--- NOTE | 2018-11-28 09:19 | Electrocardiograph Report ---
[address] [place], [place] [address] Test Date: 2018-11-26 Pat Name: Anyi Win Department: 111 Room: 2N07 Gender: F [employer] Cutter: : [id number] Requested By: Clyde Preciado Order Number: [id number] Reading MD: Jame Stiles Measurements Intervals [place] Rate: 180 P: PA: 0 QRS: -61 QRSD: 105 T: 82 QT: 268 QTc: 363 Interpretive Statements SUPRAVENTRICULAR TACHYCARDIA MARKED LEFT AXIS DEVIATION [QRS AXIS < -30] Left ventricular hypertrophywith QRS widening Possible old septal infarct. Electronically Signed On 11-28-2018 9:18:05 EDT by Jame Stiles
--- NOTE | 2018-11-28 10:18 | Event Note ---
Date of Encounter: 11/28/18 Time of Encounter: 10:13 - Cardiology Event Note TTE resulted with LVEF 55%. Mild left ventricular diastolic dysfunction. Bi- atrial enlargement. Mild aortic regurgitation. Mild mitral regurgitation. Mild- moderate tricuspid regurgitation. Mild pulmonic regurgitation. Borderline evidence for pulmonary hypertension. No segmental wall motion abnormalities noted. Regarding a.fib, on oral cardizem, remains in SR. HR controlled. [id number] score 3, recommend halfway anticoagulation. Ok for NOAC, can start and discontinue heparin drip. Regarding troponins, mildly elevated in the setting of sepsis, pneumonia. Denies chest pain. No acute ischemic ECG changes noted. Demand ischemia. No cardiac rehab consult warranted. Cardiology will sign off. Recommend outpatient cardiology follow up.
--- NOTE | 2018-11-28 14:46 | Internal Med Progress Note ---
Hospitalist Progress Note - Encounter Date of Encounter: 11/28/18 Time of Encounter: 10:45 - Subjective Interval History: Patient lying down in bed. Comfortable. Denies any new complaints at this time. Tolerating diet well. No nausea or vomiting. No fever or chills reported overnight. - Exam Vitals: Temp Pulse Resp BP Pulse Ox 97.6 F 80 18 125/62 95 11/28/18 11:33 11/28/18 11:33 11/28/18 11:33 11/28/18 11:33 11/28/18 11:33 Exam: General: Patient is alert, no acute distress, oriented x 3 ENT: Mucous membranes moist Respiratory: Coarse breath sounds bilaterally Cardiovascular: Regular rate and rhythm. s1 and s2 normal No clicks, rubs, gallops, or murmurs. No pedal edema Abdomen: Abdomen is soft, nontender. Bowel sounds are present Musculoskeletal: Spontaneously moving all extremities Skin: warm, dry, intact. Neuro: Alert oriented x 3 normal cranial nerves, no focal deficits - Assessment and Plan (1) Pneumonia Current Visit: Yes Status: Acute (2) Acute encephalopathy Current Visit: Yes Status: Resolved (3) Sepsis Current Visit: Yes Status: Resolved (4) Hx of opioid abuse Current Visit: Yes Status: Acute (5) Acute respiratory failure with hypoxia Current Visit: Yes Status: Acute (6) Hypothyroid Current Visit: Yes Status: Acute (7) HTN (hypertension) Current Visit: Yes Status: Acute (8) GERD (gastroesophageal reflux disease) Current Visit: Yes Status: Acute (9) Elevated troponin Current Visit: Yes Status: Acute (10) Afib Current Visit: Yes Status: Acute DVT Prophylaxis: Currently on IV heparin - Summary of Assessment and Plan Summary of Assessment and Plan: Multifocal pneumonia: Due to Klebsiella oxytoca. On Omnicef. Follow pulmonology recommendations. Will taper steroids. Atrial fibrillation: Continue Cardizem. On heparin IV for anticoagulation. Danie l transition to direct oral anticoagulants. Hawkins check affordability. Elevated troponin: Evaluated by cardiology. Echocardiogram shows EF of 55% with mild left ventricle and diastolic dysfunction. Recommend outpatient follow-up. Acute encephalopathy: Resolved. Essential hypertension: Patient currently on nicardipine drip. Will stop this medication. Resume lisinopril. History of opioid abuse: Continue methadone. Moderate risk for complications - Time Spent with Patient Total time spent is greater than 50% in coordination of care (as documented) at patient's floor/unit and/or counseling patient: Internal Medicine: Result - Labs CBC & Chem 7: 11/27/18 07:16 11/27/18 07:16 - ABG Interpretation ABG results: PT/INR, D-dimer PT 19.1 Seconds (9.4-12.1) H 11/25/18 16:04 - Impressions Impressions Echocardiogram 11/27/18 10:04 Impressions: LVEF 55%. Mild left ventricular diastolic dysfunction. Normal right ventricular structure and function. Bi-atrial enlargement. Mild aortic regurgitation. Mild mitral regurgitation. Mild-moderate tricuspid regurgitation. Mild pulmonic regurgitation. Borderline evidence for pulmonary hypertension. Left Ventricular Wall Motion: Rest Echo Findings All wall segments showed normal motion. Findings: Study Quality * Technically adequate exam. ECG Findings * Normal sinus rhythm. Left Ventricle * LVEF 55%. * Normal LV chamber size, wall thickness and function. * Mild left ventricular diastolic dysfunction. Right Ventricle * Normal right ventricular structure and function. Left Atrium * Moderately dilated left atrium. Right Atrium * Moderately dilated right atrium. Aortic Valve * Trileaflet aortic valve. * No aortic stenosis. * Mild aortic regurgitation. Mitral Valve * Mild mitral regurgitation. * No mitral stenosis. Tricuspid Valve * Normal tricuspid valve structure. * Mild-moderate tricuspid regurgitation. Pulmonic Valve * Pulmonic valve is not well visualized. * No pulmonic stenosis. * Mild pulmonic regurgitation. Pulmonary Artery * Pulmonary artery not well visualized. Aorta * Normally sized aortic root. Pericardium * There is no pericardial effusion present. Interatrial Septum * No evidence of PFO by color Doppler. IVC * The IVC is not well evaluated. Consult Discharge Plan - Plan Referrals: NONE,PCP [Primary Care Provider] - (1) Pneumonia Qualifiers: Pneumonia type: due to other aerobic Gram-negative bacteria Laterality: unspecified laterality Lung location: unspecified part of lung Qualified Code(s): J15.6 - Pneumonia due to other Gram-negative bacteria (3) Sepsis Qualifiers: Sepsis type: sepsis due to unspecified organism Qualified Code(s): A41.9 - Sepsis, unspecified organism (10) Afib Qualifiers: Atrial fibrillation type: paroxysmal Qualified Code(s): I48.0 - Paroxysmal a trial fibrillation
[2018-11-28] MEDS: 0.9 % Sodium Chloride 1,000 ML ONE ×2 (16:36→16:37)
[2018-11-28 16:57] LABS: Hematocrit 37.7 % (35.3-44.9); Mean Corpuscular HGB Conc 33.2 g/dL (31.6-35.5); Mean Corpuscular Hemoglobin 28.9 pg (28.0-33.3); Mean Corpuscular Volume 87.1 fL (83.0-100.0); Mean Platelet Volume 11.9 fL (9.4-12.4); Platelet Count 224 K/mcL (140-400); Red Blood Count 4.33 M/mcL (3.82-4.97); Red Cell Distribution Width 15.9 % (11.5-14.5)
[2018-11-28] MEDS ORDERED: *HR* Rivaroxaban 10 MG TABLET PO SCH (17:00)
[2018-11-28 17:15] LABS: Hemoglobin 12.5 g/dL (11.5-15.4); White Blood Count 11.9 K/mcL (4.3-11.1)
[2018-11-28] MEDS: MOM Conc 10 ML UD.LIQ PO SCH (20:46)
[2018-11-29] MEDS: Levalbuterol Neb 1.25 MG/3 ML IH SCH ×2 (03:43→10:38)
[2018-11-29 04:59] LABS: Basophils % 0.3 %; Hematocrit 40.1 % (35.3-44.9); Immature Granulocytes % 2.8 % (0-4); Lymphocytes % 9.1 %; Mean Corpuscular HGB Conc 32.4 g/dL (31.6-35.5); Mean Corpuscular Hemoglobin 28.6 pg (28.0-33.3); Mean Corpuscular Volume 88.3 fL (83.0-100.0); Mean Platelet Volume 11.7 fL (9.4-12.4); Monocytes # 1.2 K/mcL (0.0-1.3); Monocytes % 11.5 %; Neutrophils # 8.1 K/mcL (1.6-8.9); Platelet Count 238 K/mcL (140-400); Red Blood Count 4.54 M/mcL (3.82-4.97); Red Cell Distribution Width 15.9 % (11.5-14.5); Segmented Neutrophils % 76.3 %; White Blood Count 10.6 K/mcL (4.3-11.1)
[2018-11-29 05:20] LABS: BUN/Creatinine Ratio 39 (6-26); Blood Urea Nitrogen 23 mg/dL (8-23); Calcium 9.8 mg/dL (8.6-10.3); Carbon Dioxide 35 mEq/L (23-29); Chloride 95 mEq/L (98-107); Glucose 113 mg/dL (70-105); Osmolality,Calculated 292 (280-300); Sodium 139 mEq/L (136-145); eGFR For African Americans > 60 (> 60); eGFR For Non-African Americans > 60 (> 60)
[2018-11-29 07:12] VITALS: BP 168/76
[2018-11-29] MEDS: *HR* Methadone 5 MG TABLET PO SCH (08:16)
[2018-11-29] MEDS: Diltiazem CD (24hr) 120 MG CAPSULE PO SCH (08:16)
[2018-11-29] MEDS: Cefdinir 300 MG CAPSULE PO SCH (08:16)
[2018-11-29] MEDS ORDERED: amLODIPine 5 MG TABLET PO SCH (09:00)
[2018-11-29] MEDS ORDERED: predniSONE 20 MG TABLET PO SCH (09:00)
--- NOTE | 2018-11-29 09:20 | Discharge Summary ---
- NOTES TO OUTPATIENT PROVIDER Notes to Outpatient Provider: 78-year-old female patient with history of an, sarcoidosis, chronic low back pain who was hospitalized here for sepsis and acute metabolic encephalopathy related to it. Sepsis was most likely due to pneumonia. Blood cultures have been negative but sputum culture positive for Klebsiella oxytoca. During her stay here, she developed an SVT episode which been treated with adenosine was confirmed to be atrial fibrillation. She was then placed on anticoagulation with IV heparin per cardiology recommendations. At this time patient is doing much better. Her sepsis has resolved. Encephalopathy has resolved. She will complete antibiotic course with Omnicef and will continue to take Cardizem. For anticoagulation, patient was placed on Xarelto. She will follow up with cardiology for further management. I am also placing her on carvedilol 3.125 mg twice daily for hypertension. Check basic panel in 5 days as patient is being treated for hypokalemia with potassium and chloride. Orders not resulted at time of discharge: Pending orders 11/24/18 18:05 Culture,Blood [BC] Stat Date of Encounter: 11/29/18 Time of Encounter: 09:14 - Discharge Diagnosis (1) Pneumonia Priority: Primary Status: Acute Qualifiers: Pneumonia type: due to other aerobic Gram-negative bacteria Laterality: unspecified laterality Lung location: unspecified part of lung Qualified Code(s): J15.6 - Pneumonia due to other Gram-negative bacteria (2) Acute encephalopathy Priority: Secondary Status: Resolved (3) Sepsis Priority: Secondary Status: Resolved Qualifiers: Sepsis type: sepsis due to unspecified organism Qualified Code(s): A41.9 - Sepsis, unspecified organism (4) Hx of opioid abuse Priority: Secondary Status: Acute (5) Acute respiratory failure with hypoxia Priority: Secondary Status: Resolved (6) Hypothyroid Priority: Secondary Status: Chronic Qualifiers: Hypothyroidism type: other Qualified Code(s): E03.8 - Other specified hypothyroidism (7) HTN (hypertension) Priority: Secondary Status: Acute Qualifiers: Hypertension type: essential hypertension Qualified Code(s): I10 - Essential (primary) hypertension (8) GERD (gastroesophageal reflux disease) Priority: Secondary Status: Acute Qualifiers: Esophagitis presence: esophagitis presence not specified Qualified Code(s): K21.9 - Gastro-esophageal reflux disease without esophagitis (9) Elevated troponin Priority: Secondary Status: Acute (10) Afib Priority: Secondary Status: Acute Qualifiers: Atrial fibrillation type: paroxysmal Qualified Code(s): I48.0 - Paroxysmal atrial fibrillation Hospital course: Ms. Win is a 78 year old female patient with history of sarcoidosis, chronic low back pain who was hospitalized here for sepsis and acute metabolic encephalopathy related to it. Sepsis was most likely due to pneumonia. Blood cultures have been negative but sputum culture positive for Klebsiella oxytoca. During her stay here, she developed an SVT episode which been treated with adenosine and was confirmed to be atrial fibrillation. She was then placed on anticoagulation with IV heparin per cardiology recommendations. At this time patient is doing much better. Her sepsis has resolved. Encephalopathy has resolved. She will complete antibiotic course with Omnicef and will continue to take Cardizem. For anticoagulation, patient was placed on Xarelto. She will follow up with cardiology for further management. I am also placing her on carvedilol 3.125 mg twice daily for hypertension. Discharge discussed with: patient, family, nurse - Time Spent with Patient Total time spent providing and/or coordinating discharge services: Time spent: Greater than 30 minutes (32 min) - Discharge Medications Prescriptions: New Carvedilol 3.125 mg PO BID #60 tab Cefdinir [Omnicef] 300 mg PO BID #10 capsule predniSONE [PredniSONE] 10 mg PO DAILY 8 Days #20 tablet Rivaroxaban [Xarelto] 20 mg PO 1700 #60 tablet Levalbuterol Tartrate [Xopenex Hfa] 15 gm IH Q6H PRN #1 hfa.aer.ad PRN Reason: Shortness Of Breath Potassium Chloride [K-Tab ER] 20 meq PO DAILY #5 tablet.er Continued Zolpidem [Ambien] 10 mg PO HS PRN PRN Reason: Sleep Levothyroxine [Synthroid] 125 mcg PO 0630 Lisinopril [Zestril] 10 mg PO BID Sennosides [Senokot] 8.6 mg PO 2-3XD PRN PRN Reason: Constipation Pantoprazole Sodium [Protonix] 40 mg PO BID PRN PRN Reason: Heartburn Naloxegol Oxalate [Movantik] 25 mg PO DAILY Multivitamin [Daily Multiple Vitamin] 1 each PO DAILY Methadone Oral Concentrate [Methadone] 5 mg PO TID Magnesium Hydroxide [Milk of Magnesia] 400 mg PO DAILY PRN PRN Reason: Constipation Lubiprostone [Amitiza] 24 mcg PO DAILY PRN PRN Reason: Constipation Linaclotide [Linzess] 72 mcg PO DAILY PRN PRN Reason: BOWEL Lactobacillus Combination No.8 [Adult Probiotic] 1 cap PO DAILY Cyanocobalamin (B-12) [Vitamin B12] 1,000 mcg IM Q2W dilTIAZem HCl [Diltiazem 24Hr ER] 120 mg PO DAILY Lutein [Natural Lutein] 20 mg PO BID Mirabegron [Myrbetriq] 25 mg PO DAILY Home Medications: Lactobacillus Combination No.8 [Adult Probiotic] 1 cap PO DAILY 11/25/18 [History] Levothyroxine [Synthroid] 125 mcg PO 0630 11/25/18 [History] Linaclotide [Linzess] 72 mcg PO DAILY PRN 11/25/18 [History] Lisinopril [Zestril] 10 mg PO BID 11/25/18 [History] Lubiprostone [Amitiza] 24 mcg PO DAILY PRN 11/25/18 [History] Magnesium Hydroxide [Milk of Magnesia] 400 mg PO DAILY PRN 11/25/18 [History] Methadone Oral Concentrate [Methadone] 5 mg PO TID 11/25/18 [History] Multivitamin [Daily Multiple Vitamin] 1 each PO DAILY 11/25/18 [History] Naloxegol Oxalate [Movantik] 25 mg PO DAILY 11/25/18 [History] Pantoprazole Sodium [Protonix] 40 mg PO BID PRN 11/25/18 [History] Sennosides [Senokot] 8.6 mg PO 2-3XD PRN 11/25/18 [History] Zolpidem [Ambien] 10 mg PO HS PRN 11/25/18 [History] Cyanocobalamin (B-12) [Vitamin B12] 1,000 mcg IM Q2W 11/26/18 [History] Lutein [Natural Lutein] 20 mg PO BID 11/26/18 [History] Mirabegron [Myrbetriq] 25 mg PO DAILY 11/26/18 [History] dilTIAZem HCl [Diltiazem 24Hr ER] 120 mg PO DAILY 11/26/18 [History] Carvedilol 3.125 mg PO BID #60 tab 11/29/18 [Rx] Cefdinir [Omnicef] 300 mg PO BID #10 capsule 11/29/18 [Rx] Levalbuterol Tartrate [Xopenex Hfa] 15 gm IH Q6H PRN #1 hfa.aer.ad 11/29/18 [Rx] Potassium Chloride [K-Tab ER] 20 meq PO DAILY #5 tablet.er 11/29/18 [Rx] Rivaroxaban [Xarelto] 20 mg PO 1700 #60 tablet 11/29/18 [Rx] predniSONE [PredniSONE] 10 mg PO DAILY 8 Days #20 tablet 11/29/18 [Rx] Allergies/Adverse Reactions: Allergy/AdvReac Type Severity Reaction Status Date / Time acetaminophen [From [place]] Allergy Hives Verified 11/25/18 03:08 clarithromycin [From Biaxin] Allergy See Verified 11/25/18 03:08 Comments codeine Allergy Hives Verified 11/25/18 03:08 hydrocodone [From [place]] Allergy Hives Verified 11/25/18 03:08 morphine Allergy Hallucinati Verified 11/25/18 03:08 ng sulfamethoxazole AdvReac Itching Verified 11/25/18 02:59 [From Septra] trimethoprim [From Septra] AdvReac Itching Verified 11/25/18 02:59 Date of admission: 11/24/18 21:28 Primary care physician: PCP NONE Consults: 11/24/18 20:38 Consult to Nurse Navigator [CONS] Routine Comment: 11/25/18 18:14 Consult to Cardiology [CONS] Routine Comment: Consulting Provider: Cardiology Kristine Reason for Consult: Elevated troponin/ACS rule out Call Completed: Yes 11/25/18 18:16 Consult to Pulmonology [CONS] Routine Consulting Provider: [facility] Kristine Reason for Consult: Acute hypoxic respiratory failure with history of sarcoma Call Completed: Yes Discharging clinician: Jalyn Colmenares Anticipated date of discharge: 11/29/18 - Constitutional Vitals: Temp Pulse Resp BP Pulse Ox 97.2 F L 85 16 168/76 95 11/29/18 07:11 11/29/18 07:11 11/29/18 07:11 11/29/18 07:11 11/29/18 07:11 General appearance: Present: cooperative, A&O X 3, pleasant, answers questions appropriately Exam: General: Patient is alert, no acute distress, oriented x 3 ENT: Mucous membranes moist Respiratory: Good respiratory effort. Normal breath sounds. No wheezing or crackles. Cardiovascular: irregularly irregular rhythm. s1 and s2 normal No clicks, rubs, gallops, or murmurs. No pedal edema Abdomen: Abdomen is soft, nontender. Bowel sounds are present Musculoskeletal: Spontaneously moving all extremities Skin: warm, dry, intact. Neuro: Alert oriented x 3 normal cranial nerves, no focal deficits - Patient Status Disposition: Home, Self-Care Condition: Good Functional capacity at discharge: independent ambulation Overall status at discharge: patient is progressing back to baseline - Ambulatory Orders Ambulatory Orders: Basic Metabolic Panel [CHEM] Time Frame: 3 Days, Facility: [facility], Location: Lab - Discharge Instructions Instructions: Atrial Fibrillation (DC), Acute Respiratory Distress Syndrome (DC), Heart Healthy Diet (DC), Pneumonia (DC) Follow Up With: jayant nunes [Other] (Patient will make own follow up appointment) Jamir Reddy MD [Partnered Physician] - (Afib follow up in 1-2 weeks. office will call with appointment. ) - Diet and Activity Activity: increase activity as tolerated Diet: low fat, low cholesterol, low salt diet
--- NOTE | 2018-11-29 17:15 | Pulmonology Progress Note ---
Date of Encounter: 11/29/18 Time of Encounter: 09:00 Assessment and Plan (1) Acute respiratory failure with hypoxia Status: Resolved Patient SPO2 is much better and can follow up as outpatient. (2) Pneumonia Status: Acute She will be treated as outpatient with oral antibiotic. Qualifiers: Pneumonia type: due to other aerobic Gram-negative bacteria Laterality: unspecified laterality Lung location: unspecified part of lung Qualified Code(s): J15.6 - Pneumonia due to other Gram-negative bacteria (3) Sepsis Status: Resolved Qualifiers: Sepsis type: sepsis due to unspecified organism Qualified Code(s): A41.9 - Sepsis, unspecified organism (4) Personal history of sarcoidosis Status: Chronic Advised patient to follow-up as outpatient and explained to her family at the bedside she will need a follow-up CT chest as outpatient in about 6-8 weeks and clinically she is feeling much better and agree with discharge plan. She will need to have annual eye exam and if there is still significant abnormalities in the CAT scan, may consider biopsy. Subjective Principal diagnosis: Pneumonia Interval history: Patient is feeling better and she is going to be discharged home. Objective PUL Vital signs: Last Vital Signs Temp 97.2 F L 11/29/18 07:11 Pulse 85 11/29/18 07:11 Resp 16 11/29/18 07:11 BP 168/76 11/29/18 07:11 Pulse Ox 95 11/29/18 07:11 General appearance: no acute distress Eyes: nonicteric ENT: oropharynx moist Neck: supple Effort: normal Auscultation: bilateral: clear Percussion: bilateral: not dull Cardiovascular: regular rate and rhythm Gastrointestinal: normoactive bowel sounds, non-distended Extremities: no cyanosis normal mental status, non-focal exam mood appropriate Results - Laboratory Findings CBC and BMP: 11/29/18 04:20 11/29/18 04:20 PT/INR, D-dimer PT 19.1 Seconds (9.4-12.1) H 11/25/18 16:04 Abnormal lab findings: Abnormal lab results WBC 11.9 K/mcL (4.3-11.1) H D 11/28/18 16:23 RBC 3.70 M/mcL (3.82-4.97) L 11/27/18 07:16 Hgb 10.6 g/dL (11.5-15.4) L D 11/27/18 07:16 Hct 32.6 % (35.3-44.9) L 11/27/18 07:16 RDW 15.9 % (11.5-14.5) H 11/29/18 04:20 MPV 12.5 fL (9.4-12.4) H 11/27/18 07:16 Immature Gran % 9.7 % (0-4) H 11/25/18 00:32 10.0 % (0-4) H 11/26/18 09:30 26.3 K/mcL (1.6-8.9) H 11/27/18 07:16 0.5 K/mcL (0.6-4.6) L 11/27/18 07:16 1.9 K/mcL (0.0-1.3) H 11/24/18 18:05 Immature Plt Fraction 9.0 % (1.1-6.1) H 11/25/18 16:04 1+ (Not Present) A 11/26/18 09:30 PT 19.1 Seconds (9.4-12.1) H 11/25/18 16:04 Heparin Anti-Xa, Unfract 0.21 IU/mL (0.30-0.70) L 11/27/18 22:12 Sodium 134 mEq/L (136-145) L 11/26/18 09:30 Potassium 3.0 mEq/L (3.5-5.1) L 11/29/18 04:20 Chloride 95 mEq/L (98-107) L 11/29/18 04:20 Carbon Dioxide 35 mEq/L (23-29) H 11/29/18 04:20 BUN 24 mg/dL (8-23) H 11/25/18 00:32 0.59 mg/dL (0.60-1.20) L 11/29/18 04:20 39 (6-26) H 11/29/18 04:20 Glucose 113 mg/dL (70-105) H 11/29/18 04:20 POC Glucose 128 mg/dL (70-99) H 11/26/18 06:37 Lactic Acid 2.5 mmol/L (0.5-2.2) H 11/25/18 08:25 0.38 ng/mL (< 0.04) H* 11/26/18 09:30 2.9 g/dL (3.5-5.7) L 11/25/18 00:32 4.3 g/dL (2.4-3.5) H 11/25/18 00:32 0.7 (1.1-2.2) L 11/25/18 00:32 TSH 0.106 mcIU/mL (0.340-5.600) L 11/24/18 18:05 Free T3 1.66 pg/mL (2.50-3.90) L 11/25/18 08:25 30 mg/dL (Neg-Trace) H 11/24/18 17:29 Moderate (Negative) H 11/24/18 17:29 30-50 per hpf (0-3) H 11/24/18 17:29 5-15 per hpf (0-3) H 11/24/18 17:29 Ur Squamous Epith Cells Many per lpf (None-Few) H 11/24/18 17:29 Ur Culture Indicated? YES (NO) A 11/24/18 17:29 U Marijuana (THC) Screen Positive ng/mL (Cutoff = 50) H 11/24/18 17:29 Consult Discharge Plan - Plan Instructions: Atrial Fibrillation (DC), Acute Respiratory Distress Syndrome (DC), Heart Healthy Diet (DC), Pneumonia (DC) Referrals: jayant nunes [Other] (Patient will make own follow up appointment) Jamir Reddy MD [Partnered Physician] - (Afib follow up in 1-2 weeks. office will call with appointment. ) Prescriptions: Carvedilol 3.125 mg PO BID #60 tab Potassium Chloride [K-Tab ER] 20 meq PO DAILY #5 tablet.er Cefdinir [Omnicef] 300 mg PO BID #10 capsule predniSONE [PredniSONE] 10 mg PO DAILY 8 Days #20 tablet Rivaroxaban [Xarelto] 20 mg PO 1700 #60 tablet Levalbuterol Tartrate [Xopenex Hfa] 15 gm IH Q6H PRN #1 hfa.aer.ad PRN Reason: Shortness Of Breath
== END 2018-11-29 10:41 | disposition home or self-care (01) | DRG 871 ==
LOC: 2NENU 17:05 → EMEROOARM 17:05 → 2NENU 21:21 → SUATTDRO 21:28 → 2NNU 11-26 09:24
PROVIDERS: ADMIT Internal Medicine; ATTEND Internal Medicine